=== PATIENT | male | born 1950 | race Caucasian/White ===

== ENCOUNTER 2023-01-16 16:27 | Inpatient (IN) ==
[2023-01-16] MEDS ORDERED: ONDANSETRON INJ 2 MG/ML 2 ML VIAL IV STA (17:04)
[2023-01-16] MEDS ORDERED: SODIUM CHLORIDE 0.9% 1,000 ML IV STA (17:04)
--- NOTE | 2023-01-16 17:12 | Emergency Department Note ---
Impression & Plan Abdominal pain, acute, left lower quadrant ED Provider Note NAME: ESTEBAN QUIROGA AGE: 72 SEX: M : 1950 ARRIVES VIA: Ambulance INFORMANT: Patient, the patient's significant other ED PROVIDER(S): Toni Alvarado DO CHIEF COMPLAINT: Flank pain HPI: The patient is a 72-year-old male who presented to the emergency department for an evaluation of flank pain. The patient describes acute sharp stabbing left-sided flank pain which began approximately 10 days ago. He has been seen in our facility twice for similar complaints. He states that when he comes to the emergency department he has had a work-up including CAT scans and laboratory studies. No formal answer for his pain has been found but the patient states when he does go home he is feeling better but the pain always comes back. He states today the pain became acute and sharp. He was in severe pain and had to call 911. He presented to the emergency department by ambulance. The patient denies having any rectal bleeding. He had episodes of emesis. He denies having any chest pain or difficulty breathing at this time. The patient has not been seen by his family doctor during this time but he is presented to the emergency department 2 previous times. He states he has been compliant with his outpatient medications. ROS: See above HPI for pertinent positives & negatives. A total of 10 systems reviewed and were otherwise negative. PAST MEDICAL HISTORY: See Below PAST SURGICAL HISTORY: See Below FAMILY HISTORY: See Below SOCIAL HISTORY: See Below HOME MEDICATIONS: See Below ALLERGIES: See Below VITALS: See Below PHYSICAL EXAMINATION: GENERAL: The patient is awake and alert. The patient is very anxious and appears to be uncomfortable. EYES: The conjunctivae are clear. The pupils are round and reactive. EARS, NOSE, MOUTH AND THROAT: The nose is without any evidence of any deformity. NECK: The neck is nontender and supple. RESPIRATORY: Normal respiratory effort is noted there is no evidence of wheezing rhonchi or rales CARDIOVASCULAR: Regular rate and rhythm noted there no murmurs rubs or gallops normal S1 normal S2. GASTROINTESTINAL: The abdomen is soft. There is significant left-sided tenderness to palpation but there is no guarding or rigidity noted. BACK: No midline tenderness or or step-off noted range of motion in flexion extension as well as rotation no signs of muscle spasm noted MUSCULOSKELETAL/EXTREMITIES: There is no evidence of gross deformity full range of motion is noted in the hips and shoulders. SKIN: There is no obvious evidence of any rash. There are no petechiae, pallor or cyanosis noted. NEUROLOGIC: Patient is awake alert and oriented x3 strength is symmetric patellar reflexes are 2+ bilaterally MEDICAL DECISION MAKING: The patient is a 72-year-old male who presented to the emergency department for an evaluation of left lower quadrant abdominal pain. The patient has been having intermittent episodes of left-sided abdominal pain over the course the last 10 days. The patient has multiple significant past medical history including factor V. He does take blood thinners. He has been compliant with his outpatient medications. I did review the patient's previous visits as well as his previous radiographic studies. Given the degree of symptoms as well as his diaphoresis I do feel the patient could benefit from further repeat radiographic studies. For this reason a repeat CAT scan was obtained. I discussed the patient's laboratory and radiographic studies with him. He was treated with pain medication multiple times. On reevaluation he was somewhat improved but still had very severe pain. For this reason [facility] evaluate the patient in the emergency department for further management and disposition. Triage Nursing notes reviewed. Prior medical records reviewed Vital Signs: reviewed and remarkable for elevated blood pressure. Differential diagnosis: Etiologies such as appendicitis, diverticulitis, obstruction, inflammatory bowel disease, renal colic, PUD, biliary pathology, pancreatitis, mesenteric ischemia, aortic pathology, infections, genitourinary, UTI, perforated viscus, as well as others were entertained. ER treatment provided: See below Diagnostics interpreted by me: ECG: EKG was obtained in the emergency department. My interpretation is sinus bradycardia 56 bpm. There is no ectopy. LVH was noted by voltage criteria. There is no acute ST segment elevations. This was compared to a tracing from January 15, 2023. A tracing done previously was very atypical. There may be some baseline artifact but it does have some changes compared to today's tracing. Cardiac Monitoring: An order was placed for continuous cardiac monitoring. The monitor shows a rate of 58 bpm with sinus bradycardia. Laboratory studies: As stated above and show below. Imaging studies: See below. Radiographic imaging was reviewed by myself Consultation(s): I discussed this case with Dr. Flores who was on-call for the [facility] hospitalist group. Past Med/Surg History Medical History History of cough pt stated "i have had this cough for about a month. I notified my dr and he asked me to get a covid test done. tested around 10/2021 at the [facility] in [place]. test came back negative." History of dysphagia "sometimes I feel like I am choking without eating anything, having trouble breathing through my nose as well, has been going on for the last 3 years. it comes and goes." Hx of factor V Leiden mutation Hearing loss hearing aids-bilat. Pulmonary embolism 2009-when they found out he had factor V; currently taking eliquis Hemochromatosis "was taking iron pills and had too much in my blood, quit taking 3-4 months ago" [place]ent [place] [facility] [place] [facility]" Hyperlipidemia Surgical History Hx of colonoscopy History of knee surgery LEFT - 1971 Family History Sister Cancer Hypertension Heart disease Mother Stroke Hypertension Other No family history of allergies No family history of bleeding disorder Denies family history of Asthma Social History Smoking Status: Current every day smoker Second Hand Exposure: No; Do You Dip or Chew Tobacco: No; Hx Alcohol Use: No Hx Substance Use: No Preferred Language: Filipino Communication Ability: Effective City Bailiff Required: No Beliefs That Will Affect Care: None marital status: Current Living Situation: Spouse current occupational status: retired Feels Safe at Home: Yes Assistive Devices: Glasses Allergies Allergies Allergy/AdvReac Type Severity Reaction Status Date / Time No Known Drug Allergies Allergy Unknown . Verified 01/16/23 19:38 Home Meds Home Medications Medication Instructions Recorded Confirmed multivitamin 1 tab PO QAM 11/21/20 01/16/23 pravastatin 40 mg tablet 80 mg PO HS 10/18/21 01/16/23 loratadine 10 mg tablet (Claritin) 10 mg PO HS PRN Allergy Symptoms 11/06/21 01/16/23 cholecalciferol (vitamin D3) 50 50 mcg PO DAILY 01/09/23 01/16/23 mcg (2,000 unit) capsule omega-3 fatty acids-fish oil 684 1 cap PO DAILY 01/09/23 01/16/23 mg-1,200 mg capsule,delayed release acetaminophen 500 mg tablet 1,000 mg PO TID 01/15/23 01/16/23 apixaban 5 mg tablet (Eliquis) 5 mg PO BID 01/15/23 01/16/23 budesonide 0.25 mg/2 mL suspension See Rx Instructions .Route .COMPLEX 01/15/23 01/16/23 for nebulization cyanocobalamin (vitamin B-12) 1,000 mcg PO DAILY 01/15/23 01/16/23 1,000 mcg tablet (Vitamin B-12) sodium bicarbonate-sodium See Rx Instructions .Route .COMPLEX 01/15/23 01/16/23 chloride-neti pot nasal rinse with packet (Sinus Wash rinse device w/ packet) Previous Rx's Medication Instructions Recorded prednisone 20 mg tablet 20 mg PO BID 5 days #10 tabs 01/15/23 Results & Data (ED) Vital Signs Vital Signs - 24 hr 01/16/23 16:34 01/16/23 16:34 01/16/23 16:34 Temperature 36.6 C Temperature Source Oral Pulse Rate 59 L 56 L Pulse Rhythm Respiratory Rate 16 16 Blood Pressure 229/108 H Blood Pressure Mean 148 Pulse Oximetry 94 Oxygen Delivery Method Room Air Sepsis Recent Fever Within 48 Hours No Sepsis New/Unexplained Change in Mental Status N/A Sepsis Action Taken by Nursing No Action Required 01/16/23 17:25 Temperature Temperature Source Pulse Rate 58 L Pulse Rhythm Regular Respiratory Rate 19 Blood Pressure Blood Pressure Mean Pulse Oximetry 95 Oxygen Delivery Method Room Air Sepsis Recent Fever Within 48 Hours Sepsis New/Unexplained Change in Mental Status Sepsis Action Taken by Skilled Nursing Medications Current Medication List: was personally reviewed by me Laboratory Data Attestation: I reviewed the patient's lab results. 01/16/23 17:24 01/16/23 17:24 Lab Results 01/16/23 01/16/23 Range/Units 17:24 17:34 WBC 5.86 (4.8-10.8) K/ul RBC 4.13 L (4.70-6.10) M/uL Hgb 13.7 L (14.0-18.0) g/dl Hct 40.8 L (42.0-52.0) % MCV 98.8 (80.0-100.0) fL MCH 33.2 (25.0-34.0) pg MCHC 33.6 (32.0-36.0) g/dL RDW Std Deviation 46.5 H (36.4-46.3) fL RDW Coeff of Prasanth 12.7 (11.5-14.5) % Plt Count 160 (130-400) K/uL MPV 10.0 (9.4-12.4) fL Immature Gran % (Auto) 0.3 % Neut % (Auto) 89.6 % Lymph % (Auto) 6.5 % [place] % (Auto) 3.4 % Eos % (Auto) 0.0 % Baso % (Auto) 0.2 % Neut # (Auto) 5.25 (1.40-6.50) K/uL Lymph # (Auto) 0.38 L (1.20-3.40) K/uL [place] # (Auto) 0.20 (0.11-0.59) K/uL Eos # (Auto) 0.00 (0.00-0.50) K/uL Baso # (Auto) 0.01 (0.00-0.20) K/uL Immature Gran # (Auto) 0.02 (0.01-0.20) K/uL PT 11.3 (9.0-12.0) Seconds INR 1.0 (0.9-1.1) APTT 25.2 (21.0-31.0) Seconds PTT Ratio 0.9 Sodium 136 (136-145) mmol/L Potassium 3.9 (3.5-5.1) mmol/L Chloride 102 (98-107) mmol/L Carbon Dioxide 27 (21-32) mmol/L Anion Gap 7 (3-11) BUN 17 (6-23) mg/dl Creatinine 1.01 (0.6-1.4) mg/dl Est Cr Clr Drug Dosing 62.1 ml/min Est GFR ( Amer) 84.5 ml/min Est GFR (Non-Af Amer) 72.9 ml/min BUN/Creatinine Ratio 16.8 (10-20) Glucose 160 H (70-99(Fasting)) mg/dl Lactate 1.4 (0.4-2.0) mmol/L Calcium 8.9 (8.6-10.3) mg/dl Total Bilirubin 0.9 (0.2-1.0) mg/dl AST 19 (13-39) U/L ALT 16 (7-52) U/L Alkaline Phosphatase 63 (34-104) U/L Troponin I High Sens 8.8 (0-20) pg/ml Total Protein 7.9 (6.0-8.3) gm/dl Albumin 4.4 (3.4-5.0) gm/dl Globulin 3.5 (2.5-4.0) gm/dl Albumin/Globulin Ratio 1.3 (0.9-2) Lipase 15 (11-82) U/L Urine Color Yellow Urine Appearance Clear (Clear) Urine pH 7.5 (4.5-7.5) Ur Specific Sulphur 1.017 (1.000-1.030) Urine Protein 2+ H (Negative) Urine Glucose (UA) Trace H (Negative) Urine Ketones 1+ H (Negative) Urine Blood Negative (Negative) Urine Nitrite Negative (Negative) Urine Bilirubin Negative (Negative) Urine Urobilinogen Negative (Negative) Ur Leukocyte Esterase Negative (Negative) Urine WBC (Auto) 1-5 (0-5) /hpf Urine RBC (Auto) 0-4 (0-4) /hpf U Hyaline Cast (Auto) 0 (0-5) /lpf U Epithel Cells (Auto) 5-10 H (0-5) /lpf Urine Bacteria (Auto) Negative (Negative) Administered Medications Hydromorphone HCl (Hydromorphone Inj 1 Mg/Ml Syringe) 1 mg IV Q15M PRN PRN Reason: Pain Stop: 01/30/23 19:30 Last Admin: 01/16/23 19:35 Dose: 1 mg Documented By: TELEPHONE SWITCHBOARD OPERATOR Morphine Sulfate (Morphine Sulfate 4 Mg/Ml 1 Ml Carp\\Vial) 4 mg IV Q15M PRN PRN Reason: Pain Stop: 01/30/23 17:03 Last Admin: 01/16/23 19:00 Dose: 4 mg Documented By: TELEPHONE SWITCHBOARD OPERATOR Admin: 01/16/23 18:34 Dose: 4 mg Documented By: TELEPHONE SWITCHBOARD OPERATOR Discontinued Medications Sodium Chloride (Nss) 1,000 mls @ 999 mls/hr IV .Q1H1M STA Stop: 01/16/23 18:04 Last Infusion: 01/16/23 19:29 Dose: Infused Documented By: TELEPHONE SWITCHBOARD OPERATOR Admin: 01/16/23 17:37 Dose: 999 mls/hr Documented By: TELEPHONE SWITCHBOARD OPERATOR Ioversol (Optiray 320 125ml) 118 ml IV ONCE ONE Stop: 01/16/23 18:27 Last Admin: 01/16/23 18:27 Dose: 118 ml Documented By: PLW Ondansetron HCl (Ondansetron Inj 2 Mg/Ml 2 Ml Vial) 4 mg IV NOW STA Stop: 01/16/23 17:05 Last Admin: 01/16/23 18:34 Dose: 4 mg Documented By: TELEPHONE SWITCHBOARD OPERATOR Imaging Data Attestation: I personally reviewed and interpreted this imaging study as follows: My Impression: CT angiography of the abdomen and pelvis was obtained. My interpretation is no free air or signs of bowel obstruction, final report below. Radiologist's Impression: Abdomen/Pelvis CTA 01/16/23 17:07 CT ANGIOGRAPHY OF THE ABDOMEN AND PELVIS CLINICAL HISTORY: Left-sided abdominal pain. COMPARISON STUDY: CT of the abdomen and pelvis January 15, 2023. TECHNIQUE: Helical axial images of the abdomen and pelvis were obtained during arterial phase following intravenous injection of 118 cc of Optiray 320 IV. Sagittal and coronal reconstructions were viewed as well as maximal intensity projections on an independent 3-D workstation. Automated exposure control was utilized for the study. A dose lowering technique was utilized adhering to the principles of ALARA. FINDINGS: No pneumatosis, free air or portal venous gas is present. The caliber of the abdominal aorta is normal. There is mild plaque within the abdominal aorta. The branch vessels are patent. There is no stenosis or dissection or aneurysm within the abdomen or pelvis. Arterial phase images of liver, spleen, adrenal glands and pancreas are unremarkable. There is no biliary or pancreatic ductal dilatation. There is no peripancreatic or pericholecystic infiltration. There is no hydronephrosis. There are no urinary calculi. A few left renal cysts are present. There is no evidence for a bowel obstruction. No bowel wall thickening is identified. No acute fractures are within the visualized skeletal structures are present. IMPRESSION: 1. Normal caliber abdominal aorta. Mild atherosclerotic plaque. Patent vessels. No dissection or aneurysm within the abdomen or pelvis. 2. No acute process within the abdomen or pelvis on arterial phase exam. ACT 112: Negative or not required by law. Electronically signed by: Robert Mendez M.D. 01/16/2023 6:55 PM Discharge Plan Visit Data Chief Complaint: Abdominal Pain Stated Complaint: L ABD/FLANK PAIN, SEEN HERE YESTERDAY ED Provider: Toni Alvarado Discharge Problem: Abdominal pain, acute, left lower quadrant Patient Disposition: Being Evaluated by Hospitalist Forms Stand Alone Forms: My [facility] Prescriptions Prescriptions: No Action loratadine [Claritin] 10 mg tablet 10 mg PO HS PRN (Reason: Allergy Symptoms) pravastatin 40 mg tablet 80 mg PO HS multivitamin Tablet 1 tab PO QAM cholecalciferol (vitamin D3) 50 mcg (2,000 unit) Capsule 50 mcg PO DAILY [place] 3 Fish Oil 684-1,200 mg Capsule,Delayed Release(Dr/Ec) 1 cap PO DAILY cyanocobalamin (vitamin B-12) [Vitamin B-12] 1,000 mcg Tablet 1,000 mcg PO DAILY acetaminophen [Tylenol Ex Str Rapid Release] 500 mg Tablet 1,000 mg PO TID budesonide 0.25 mg/2 mL Suspension For Nebulization See Rx Instructions .ROUTE .COMPLEX Rx Instructions: Adds to neti pot and uses to rinse nasal cavities twice daily Eliquis 5 mg Tablet 5 mg PO BID Nasal Relief Sinus Wash w/Neti Packet With Rinse Device See Rx Instructions .ROUTE .COMPLEX Rx Instructions: Uses it twice daily w/ budesonide. prednisone 20 mg tablet 20 mg PO BID 5 Days Qty: 10 0RF Referrals Referrals: Reinier Watson [facility] [Primary Care Provider] -
[2023-01-16 17:39] LABS: Basophils # (auto) 0.01 K/uL (0.00-0.20); Basophils % (auto) 0.2 %; Hematocrit (blood only) 40.8 % (42.0-52.0); Hemoglobin 13.7 g/dl (14.0-18.0); Immature Granulocytes # (auto) 0.02 K/uL (0.01-0.20); Immature Granulocytes % (auto) 0.3 %; Lymphocytes # (auto) 0.38 K/uL (1.20-3.40); Lymphocytes % (auto) 6.5 %; Mean Corpuscular Hemoglobin 33.2 pg (25.0-34.0); Mean Corpuscular Hgb Conc 33.6 g/dL (32.0-36.0); Mean Corpuscular Volume 98.8 fL (80.0-100.0); Monocytes % (auto) 3.4 %; Neutrophils # (auto) 5.25 K/uL (1.40-6.50); Neutrophils % (auto) 89.6 %; Platelet Count 160 K/uL (130-400); RDW Coefficient of Variation 12.7 % (11.5-14.5); RDW Standard Deviation 46.5 fL (36.4-46.3); Red Blood Count 4.13 M/uL (4.70-6.10); White Blood Count 5.86 K/ul (4.8-10.8)
[2023-01-16 17:56] LABS: Appearance Urine Clear (Clear); Bacteria Urine Automated Negative (Negative); Bilirubin Urine Negative (Negative); Blood Urine Negative (Negative); Cast Urine Automated 0 /lpf (0-5); Color Urine Yellow; Glucose Urine UA Trace (Negative); Ketones Urine 1+ (Negative); Leukocyte Esterase Urine Negative (Negative); Nitrite Urine Negative (Negative); RBC Urine Automated 0-4 /hpf (0-4); Specific Gravity Urine 1.017 (1.000-1.030); Urobilinogen Urine Negative (Negative); pH Urine 7.5 (4.5-7.5)
[2023-01-16 18:00] LABS: Protein Urine 2+ (Negative)
[2023-01-16 18:01] LABS: Albumin Level 4.4 gm/dl (3.4-5.0); Bilirubin,Total 0.9 mg/dl (0.2-1.0); Calcium 8.9 mg/dl (8.6-10.3); Potassium 3.9 mmol/L (3.5-5.1)
[2023-01-16 18:07] LABS: Albumin Globulin Ratio 1.3 (0.9-2); BUN Creatinine Ratio 16.8 (10-20); Creatinine Clr Calc Pharmacy 62.1 ml/min; Est GFR (African American) 84.5 ml/min; Est GFR (Non-African American) 72.9 ml/min; Globulin 3.5 gm/dl (2.5-4.0); Partial Thromboplastin Ratio 0.9; Partial Thromboplastin Time 25.2 Seconds (21.0-31.0); Prothrombin Time 11.3 Seconds (9.0-12.0); Total Protein 7.9 gm/dl (6.0-8.3)
[2023-01-16 18:09] LABS: Troponin I High Sensitivity 8.8 pg/ml (0-20)
[2023-01-16] MEDS ORDERED: OPTIRAY 320 125ml IV ONE (18:26)
[2023-01-16] MEDS: MoRPHine SULFATE 4 MG/ML 1 ML CARP\\VIAL IV PRN ×2 (18:34→19:00)
--- NOTE | 2023-01-16 18:57 | CT Scan Report ---
CT ANGIOGRAPHY OF THE ABDOMEN AND PELVIS CLINICAL HISTORY: Left-sided abdominal pain. COMPARISON STUDY: CT of the abdomen and pelvis January 15, 2023. TECHNIQUE: Helical axial images of the abdomen and pelvis were obtained during arterial phase followi ng intravenous injection of 118 cc of Optiray 320 IV. Sagittal and coronal reconstructions were viewe d as well as maximal intensity projections on an independent 3-D workstation. Automated exposure cont rol was utilized for the study. A dose lowering technique was utilized adhering to the principles of ALARA. FINDINGS: No pneumatosis, free air or portal venous gas is present. The caliber of the abdominal aort a is normal. There is mild plaque within the abdominal aorta. The branch vessels are patent. There is no stenosis or dissection or aneurysm within the abdomen or pelvis. Arterial phase images of liver, spleen, adrenal glands and pancreas are unremarkable. There is no biliary or pancreatic ductal dilata tion. There is no peripancreatic or pericholecystic infiltration. There is no hydronephrosis. There a re no urinary calculi. A few left renal cysts are present. There is no evidence for a bowel obstructi on. No bowel wall thickening is identified. No acute fractures are within the visualized skeletal str uctures are present. IMPRESSION: 1. Normal caliber abdominal aorta. Mild atherosclerotic plaque. Patent vessels. No dissection or aneu rysm within the abdomen or pelvis. 2. No acute process within the abdomen or pelvis on arterial phase exam. ACT 112: Negative or not required by law. Electronically signed by: Robert Mendez M.D. 01/16/2023 6:55 PM
[2023-01-16] MEDS ORDERED: HYDROmorphone INJ 1 MG/ML SYRINGE IV PRN (19:31)
[2023-01-16] MEDS ORDERED: lisinopril 5 MG TAB PO ONE (19:54)
[2023-01-16] MEDS ORDERED: oxyCODONE HCL IR 5 MG TAB (IMMEDIATE RELEASE) PO PRN (20:04)
[2023-01-16] MEDS ORDERED: ACETAMINOPHEN 325 MG TAB PO PRN (20:04)
[2023-01-16] MEDS ORDERED: LORazepam 0.5 MG TAB PO PRN (20:05)
[2023-01-16] MEDS ORDERED: PROMETHAZINE HCL 6.25 MG in SODIUM CHLORIDE 0.9% 50 ML IV PRN (20:05)
[2023-01-16] MEDS ORDERED: MoRPHine SULFATE 2 MG/ML CARP IV PRN (20:05)
[2023-01-16 20:53] LABS: Thyroid Stimulating Hormone 1.982 uIu/ml (0.300-4.500)
[2023-01-16 20:58] LABS: Estimated Average Glucose 114 mg/dl; Hemoglobin A1C 5.6 % (4.5-5.6)
[2023-01-16] MEDS ORDERED: LIDOCAINE 5% 1 PATCH TD ONE (21:00)
--- NOTE | 2023-01-16 21:12 | History & Physical Report ---
Date of Service January 16, 2023 Assessment & Plan (1) Asymptomatic hypertensive urgency: Plan: Secondary to intractable left flank/left abdominal pain rule out radiculopathy (lumbar CT from yesterday showed disc space narrowing) and recent steroid Rx Probable muscular etiology on exam Possible chronic BP elevation given LVH on EKG hypercoagulable state (hx PE and factor V Leiden mutation) on Eliquis hyperlipidemia on statin Rx Steroid-induced hyperglycemia rule out DM OBS Medical telemetry given hypertensive urgency Initiate lisinopril Analgesia Lumbar spine MRI Re: Left flank pain going to the abdomen rule out radiculopathy May need Orthopedic spine consultation pending results Hold Eliquis for now until lumbar spine resulted in anticipation of any procedure IV heparin while Eliquis on hold. Hold prednisone Check hemoglobin A1c DVT prophylaxis with IV heparin Full code Patient requesting updates providers. Amanda Segura, contact #[phone]. Text document was generated using [employer] voice recognition software. It may contain grammatical or spelling errors. Kindly contact undersigned for clarification of any documentation item in question. History of Present Illness Chief Complaint: Worsening left flank/abdominal pain Primary Care Provider: ARIES Britt History obtained from patient, family, and records. Medical history significant for hypercoagulable state (hx PE and factor V Leiden mutation) on Eliquis, hyperlipidemia, hemochromatosis. 10 days history of intermittent achy left flank pain symptoms going to the abdomen followed by occasional nausea, emesis. No headache, no chest pain, no SOB. No rash. No hematuria. No recollection of recent trauma or exertion. Symptoms somewhat worsened by motion and ambulation. No leg radiation. Patient sent home after unremarkable work-up at the [facility] ER last January 08. Patient consulted sports therapist acquaintance last week. He was told that his pelvis was misaligned. Some improvement after manipulation done by sports therapist as per patient. A few days later, patient had worsening recurrence of left-sided flank pain going to the belly. Bowels somewhat hard to move. Patient seen at the ER yesterday. No acute pathology on CT abdomen and pelvis and lumbar imaging. Patient discharged on prednisone course. No improvement despite 1 dose of prednisone. Patient returned to ER for evaluation. SBP 220s upon arrival at the ER. Patient denies headache, chest pain, SOB symptoms. 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 Verified 01/16/23 19:38 Home Medications Medication Instructions Recorded Confirmed Type multivitamin 1 tab PO QAM 11/21/20 01/16/23 History pravastatin 40 mg tablet 80 mg PO HS 10/18/21 01/16/23 History loratadine 10 mg tablet (Claritin) 10 mg PO HS PRN Allergy Symptoms 11/06/21 01/16/23 History cholecalciferol (vitamin D3) 50 50 mcg PO DAILY 01/09/23 01/16/23 History mcg (2,000 unit) capsule omega-3 fatty acids-fish oil 684 1 cap PO DAILY 01/09/23 01/16/23 History mg-1,200 mg capsule,delayed release acetaminophen 500 mg tablet 1,000 mg PO TID 01/15/23 01/16/23 History apixaban 5 mg tablet (Eliquis) 5 mg PO BID 01/15/23 01/16/23 History budesonide 0.25 mg/2 mL suspension See Rx Instructions .Route .COMPLEX 01/15/23 01/16/23 History for nebulization cyanocobalamin (vitamin B-12) 1,000 mcg PO DAILY 01/15/23 01/16/23 History 1,000 mcg tablet (Vitamin B-12) prednisone 20 mg tablet 20 mg PO BID 5 days #10 tabs 01/15/23 01/16/23 Rx sodium bicarbonate-sodium See Rx Instructions .Route .COMPLEX 01/15/23 01/16/23 History chloride-neti pot nasal rinse with packet (Sinus Wash rinse device w/ packet) Past Med/Surg History Medical History History of cough pt stated "i have had this cough for about a month. I notified my dr and he asked me to get a covid test done. tested around 10/2021 at the [place] urgent [facility] in [place]. test came back negative." History of dysphagia "sometimes I feel like I am choking without eating anything, having trouble breathing through my nose as well, has been going on for the last 3 years. it comes and goes." Hx of factor V Leiden mutation Hearing loss hearing aids-bilat. Pulmonary embolism 2009-when they found out he had factor V; currently taking eliquis Hemochromatosis "was taking iron pills and had too much in my blood, quit taking 3-4 months ago" [place]ent [place], [place] the [place] department of the health" Hyperlipidemia Surgical History Hx of colonoscopy History of knee surgery LEFT - 1971 Family History Sister Cancer Hypertension Heart disease Mother Stroke Hypertension Other No family history of allergies No family history of bleeding disorder Denies family history of Asthma Social History Smoking Status: Never smoker Second Hand Exposure: No; Do You Dip or Chew Tobacco: No; Hx Alcohol Use: No Hx Substance Use: No Preferred Language: Lithuanian Communication Ability: Effective Sausage Cooker Required: No Beliefs That Will Affect Care: None marital status: Current Living Situation: Spouse current occupational status: retired Feels Safe at Home: Yes Safety Concerns: Feels Safe At This Time Assistive Devices: Glasses Review of Systems Review of Systems: As per HPI, all other systems reviewed and negative Physical Exam Physical Exam: GENERAL: Slightly uncomfortable, no respiratory distress SKIN: Normal color, warm HEENT: [place] palpebral conjunctivae, no ptosis, dry buccal mucosa NECK : Supple, no tenderness CHEST : CTA, no tenderness HEART : Bradycardic, no obvious murmurs ABDOMEN: Some distention, left-sided abdominal tenderness BACK : Low back tenderness, negative straight leg raise test EXTREMITIES : No LE swelling/tenderness, no other conspicuous deformities noted NEUROLOGIC : Coherent, no facial asymmetry, no other gross focality Results & Data Results & Data Vital Signs (Past 12 Hours) Vital Signs Temp Pulse Resp BP Pulse Ox O2 Del Method 01/16/23 20:12 59 L 01/16/23 17:25 58 L 19 95 Room Air 01/16/23 16:34 56 L 01/16/23 16:34 16 01/16/23 16:34 36.6 C 59 L 16 229/108 H 94 Room Air Laboratory Results Laboratory Results WBC 5.86 K/ul (4.8-10.8) 01/16/23: RBC 4.13 M/uL (4.70-6.10) L 01/16/23: Hgb 13.7 g/dl (14.0-18.0) L 01/16/23: Hct 40.8 % (42.0-52.0) L 01/16/23: MCV 98.8 fL (80.0-100.0) 01/16/23: MCH 33.2 pg (25.0-34.0) 01/16/23: MCHC 33.6 g/dL (32.0-36.0) 01/16/23 RDW Std Deviation 46.5 fL (36.4-46.3) H 01/16/23 RDW Coeff of Prasanth 12.7 % (11.5-14.5) 01/16/23 Plt Count 160 K/uL (130-400) 01/16/23: MPV 10.0 fL (9.4-12.4) 01/16/23: Immature Gran % (Auto) 0.3 % 01/16/23: Neut % (Auto) 89.6 % 01/16/23: Lymph % (Auto) 6.5 % 01/16/23: Gregory % (Auto) 3.4 % 01/16/23: Eos % (Auto) 0.0 % 01/16/23: Baso % (Auto) 0.2 % 01/16/23: Neut # (Auto) 5.25 K/uL (1.40-6.50) 01/16/23: Lymph # (Auto) 0.38 K/uL (1.20-3.40) L 01/16/23: Gregory # (Auto) 0.20 K/uL (0.11-0.59) 01/16/23: Eos # (Auto) 0.00 K/uL (0.00-0.50) 01/16/23: Baso # (Auto) 0.01 K/uL (0.00-0.20) 01/16/23 17:24 Immature Gran # (Auto) 0.02 K/uL (0.01-0.20) 01/16/23 17:24 PT 11.3 Seconds (9.0-12.0) 01/16/23 17:24 INR 1.0 (0.9-1.1) 01/16/23 17: APTT 25.2 Seconds (21.0-31.0) 01/16/23: PTT Ratio 0.9 01/16/23 17:24 Sodium 136 mmol/L (136-145) 01/16/23 17:24 Potassium 3.9 mmol/L (3.5-5.1) 01/16/23: Chloride 102 mmol/L (98-107) 01/16/23: Carbon Dioxide 27 mmol/L (21-32) 01/16/23 17: Anion Gap 7 (3-11) 01/16/23: BUN 17 mg/dl (6-23) 01/16/23: Creatinine 1.01 mg/dl (0.6-1.4) 01/16/23 17: Est Cr Clr Drug Dosing 62.1 ml/min 01/16/23 17:24 Est GFR ( Amer) 84.5 ml/min 01/16/23: Est GFR (Non-Af Amer) 72.9 ml/min 01/16/23 17: BUN/Creatinine Ratio 16.8 (10-20) 01/16/23 17: Glucose 160 mg/dl (70-99(Fasting)) H 01/16/23 17: Estimat Average Glucose 114 mg/dl 01/16/23 17:24 Hemoglobin A1c 5.6 % (4.5-5.6) 01/16/23 17: Lactate 1.4 mmol/L (0.4-2.0) 01/16/23: Calcium 8.9 mg/dl (8.6-10.3) 01/16/23 17:24 Total Bilirubin 0.9 mg/dl (0.2-1.0) 01/16/23 17: AST 19 U/L (13-39) 01/16/23 17: ALT 16 U/L (7-52) 01/16/23 17:24 Alkaline Phosphatase 63 U/L (34-104) 01/16/23 17:24 Troponin I High Sens 8.8 pg/ml (0-20) 01/16/23 17:24 Total Protein 7.9 gm/dl (6.0-8.3) 01/16/23 17:24 Albumin 4.4 gm/dl (3.4-5.0) 01/16/23 17: Globulin 3.5 gm/dl (2.5-4.0) 01/16/23 17: Albumin/Globulin Ratio 1.3 (0.9-2) 01/16/23 17: Lipase 15 U/L (11-82) 01/16/23 17: TSH 1.982 uIu/ml (0.300-4.500) 01/16/23 17:24 Urine Color Yellow 01/16/23 17:34 Urine Appearance Clear (Clear) 01/16/23 17:34 Urine pH 7.5 (4.5-7.5) 01/16/23 17:34 Ur Specific Cody 1.017 (1.000-1.030) 01/16/23 17:34 Urine Protein 2+ (Negative) H 01/16/23 17:34 Urine Glucose (UA) Trace (Negative) H 01/16/23 17:34 Urine Ketones 1+ (Negative) H 01/16/23 17:34 Urine Blood Negative (Negative) 01/16/23 17:34 Urine Nitrite Negative (Negative) 01/16/23 17:34 Urine Bilirubin Negative (Negative) 01/16/23 17:34 Urine Urobilinogen Negative (Negative) 01/16/23 17:34 Ur Leukocyte Esterase Negative (Negative) 01/16/23 17:34 Urine WBC (Auto) 1-5 /hpf (0-5) 01/16/23 17:34 Urine RBC (Auto) 0-4 /hpf (0-4) 01/16/23 17:34 U Hyaline Cast (Auto) 0 /lpf (0-5) 01/16/23 17:34 U Epithel Cells (Auto) 5-10 /lpf (0-5) H 01/16/23 17:34 Urine Bacteria (Auto) Negative (Negative) 01/16/23 17:34 Impressions Abdomen/Pelvis CTA 01/16/23 17:07 CT ANGIOGRAPHY OF THE ABDOMEN AND PELVIS CLINICAL HISTORY: Left-sided abdominal pain. COMPARISON STUDY: CT of the abdomen and pelvis January 15, 2023. TECHNIQUE: Helical axial images of the abdomen and pelvis were obtained during arterial phase following intravenous injection of 118 cc of Optiray 320 IV. Sagittal and coronal reconstructions were viewed as well as maximal intensity projections on an independent 3-D workstation. Automated exposure control was utilized for the study. A dose lowering technique was utilized adhering to the principles of ALARA. FINDINGS: No pneumatosis, free air or portal venous gas is present. The caliber of the abdominal aorta is normal. There is mild plaque within the abdominal aorta. The branch vessels are patent. There is no stenosis or dissection or aneurysm within the abdomen or pelvis. Arterial phase images of liver, spleen, adrenal glands and pancreas are unremarkable. There is no biliary or pancreatic ductal dilatation. There is no peripancreatic or pericholecystic infiltration. There is no hydronephrosis. There are no urinary calculi. A few left renal cysts are present. There is no evidence for a bowel obstruction. No bowel wall thickening is identified. No acute fractures are within the visualized skeletal structures are present. IMPRESSION: 1. Normal caliber abdominal aorta. Mild atherosclerotic plaque. Patent vessels. No dissection or aneurysm within the abdomen or pelvis. 2. No acute process within the abdomen or pelvis on arterial phase exam. ACT 112: Negative or not required by law. Electronically signed by: Robert Mendez M.D. 01/16/2023 6:55 PM Diagnostic Findings EKG as per my interpretation : Rate 55, sinus bradycardia, LAD, LAFB, LVH, no ischemia
[2023-01-16] MEDS ORDERED: tiZANidine HCL 4 MG TABLET PO PRN (21:15)
[2023-01-16] MEDS ORDERED: Heparin IV Adult Wt-Based Low-Dose *NO* Bolus Protocol IV STA (21:24)
[2023-01-16] MEDS ORDERED: Heparin IV Adult Wt-Based Low-Dose *NO* Bolus Protocol IV SCH (21:30)
[2023-01-16 22:46] LABS: Lyme Ab IgG w/WB Rflx Negative (Negative); Lyme Ab IgM w/WB Rflx Negative (Negative)
[2023-01-16] MEDS: HEPARIN SODIUM/DEXTROSE 25,000 UNITS/500 ML BAG IV SCH (22:56)
[2023-01-17] MEDS ORDERED: [UNRECOGNIZED DRUG - MIXTURE] SCH (00:09)
[2023-01-17] MEDS ORDERED: POLYETHYLENE (MIRALAX) 17 GM PACK PO PRN (00:09)
[2023-01-17] MEDS ORDERED: LORATADINE 10 MG TAB PO PRN (00:09)
[2023-01-17] MEDS: DOCUSATE SODIUM/SENNA 50/8.6MG TAB PO SCH ×2 (00:34→09:36)
--- NOTE | 2023-01-17 02:43 | Magnetic Resonance Report ---
Exam(s): MRI L SPINE Without Contrast EXAM: MR Lumbar Spine Without Intravenous Contrast CLINICAL HISTORY: Reason for exam: back pain. TECHNIQUE: Magnetic resonance images of the lumbar spine without intravenous contrast in multiple planes. COMPARISON: Comparison made to prior CT scan of the lumbar spine from January 15, 2023. FINDINGS: Vertebrae: There are 5 lumbar type vertebral bodies with a mild generalized curve to the left and normal lumbar lordosis. The S1 vertebral body is transitional. There is mild grade 1 retrolisthesis of L3 on L4 measuring 2 mm. Otherwise, there is normal vertebral body height and alignment. The bone was signal is heterogeneous with reactive endplate changes with extensive edema in the left L4-5 endplates and areas of focal fat or venous malformations. No acute fracture. Mild to moderate sacroiliac joint arthropathy. Spinal cord: The conus is normal size, shape and signal. Piercings, terminating at T12. Soft tissues: Moderate atrophy of the paraspinous and intraspinous musculature. The iliopsoas muscles are unremarkable. The aorta and IVC flow voids are intact. The visualized kidneys are unremarkable. DISCS/SPINAL CANAL/NEURAL FORAMINA: L1-L2: Moderate disc degeneration with annular disc bulge flattening the ventral thecal sac, with disc extending to the neural foramina without evidence of impingement or significant stenosis. There is mild facet arthropathy with mild synovitis. L2-L3: Moderate disc degeneration with annular disc bulge asymmetric to the left causing mild subarticular recess stenosis, with disc extending into the neural foramina without evidence of impingement or significant stenosis. There is mild facet arthropathy with mild synovitis. L3-L4: Moderate disc degeneration with annular disc bulge just medial to the left causing a mild subarticular recess stenosis, with disc and osteophyte extend to the neural foramina without evidence of impingement or significant stenosis. There is mild facet arthropathy with mild synovitis. L4-L5: Moderate disc degeneration with annular disc bulge and superimposed 2 mm right paracentral disc protrusion causing a mild subarticular recess stenosis with a disc and osteophyte extend into the neural foramina causing a mild right stenosis without evidence of neural impingement. There is mild facet arthropathy with mild synovitis. L5-S1: Advanced disc degeneration with annular disc bulge asymmetric to the left causing a mild subarticular recess stenosis with disc extending to the neural foramina causing a moderate right and severe left stenosis with impingement of the L5 nerve root ganglia. There is mild facet arthropathy with mild synovitis. IMPRESSION: 1. Advanced disc degeneration at L5-S1 with moderate disc degeneration at L1-2, L2-3, L3-4 and L4-5 with annular disc bulging flattening the ventral thecal sac and causing a mild subarticular recess stenosis at L2- 3 through L5-S1 without evidence of neural impingement. There is extensive bone marrow edema at L5-S1, which may be causing a central discogenic type lower back pain. 2. There is no spinal canal stenosis. 3. There is a mild right L4-5 and moderate right and severe left L5-S1 neuroforaminal stenosis with impingement of the bilateral L5 nerve ganglia. 4. There is mild facet joint arthropathy with mild synovitis. 5. Mild to moderate bilateral sacroiliac joint arthropathy. 6. No evidence of fracture, infection, tumor or arachnoiditis. Electronically signed by: Ivonne Dunlap MD 01/17/23 02:42 AM
[2023-01-17] MEDS ORDERED: lisinopril 5 MG TAB PO SCH (03:35)
[2023-01-17 05:50] LABS: Basophils # (auto) 0.04 K/uL (0.00-0.20); Basophils % (auto) 0.6 %; Hematocrit (blood only) 40.2 % (42.0-52.0); Hemoglobin 13.7 g/dl (14.0-18.0); Immature Granulocytes # (auto) 0.01 K/uL (0.01-0.20); Immature Granulocytes % (auto) 0.2 %; Lymphocytes # (auto) 1.69 K/uL (1.20-3.40); Lymphocytes % (auto) 26.8 %; Mean Corpuscular Hemoglobin 33.7 pg (25.0-34.0); Mean Corpuscular Hgb Conc 34.1 g/dL (32.0-36.0); Monocytes # (auto) 0.51 K/uL (0.11-0.59); Monocytes % (auto) 8.1 %; Neutrophils # (auto) 4.05 K/uL (1.40-6.50); Neutrophils % (auto) 64.3 %; Platelet Count 172 K/uL (130-400); RDW Coefficient of Variation 13.1 % (11.5-14.5); RDW Standard Deviation 47.8 fL (36.4-46.3); Red Blood Count 4.06 M/uL (4.70-6.10)
[2023-01-17 06:00] LABS: Partial Thromboplastin Ratio 1.3; Partial Thromboplastin Time 37.2 Seconds (21.0-31.0)
[2023-01-17] MEDS: HEPARIN SODIUM/DEXTROSE 25,000 UNITS/500 ML BAG IV SCH (07:06)
--- NOTE | 2023-01-17 08:26 | Orthopedic Consultation ---
Date of Consultation January 17, 2023 Assessment & Plan (1) Abdominal pain, acute, left lower quadrant: MRI reviewed and I do not appreciate any evidence of thoracolumbar neural compression. There is significant neuroforaminal disease L4-L5 on the left. He has normal age-related bone patterns throughout the spine. I do not believe this is contributing to his symptom complex at this time. History of Present Illness Reason for Consultation: Left lower quadrant pain Attending Physician: Darin Ramos MD History of Present Illness This is a 72-year-old male that had episodes of severe left lower quadrant pain in the abdomen. He denies any specific trauma fall or event. He states the pain was incapacitating. Is often related to prolonged standing and walking. This morning he is relatively comfortable in bed. He denies any significant thoracolumbar discomfort. He denies any leg pain. He is otherwise a very active gentleman works out on regular basis. Allergies Allergy/AdvReac Type Severity Reaction Status Date / Time No Known Drug Allergies Allergy Unknown . Verified 01/16/23 19:38 Home Medications Medication Instructions Recorded Confirmed Type multivitamin 1 tab PO QAM 11/21/20 01/16/23 History pravastatin 40 mg tablet 80 mg PO HS 10/18/21 01/16/23 History loratadine 10 mg tablet (Claritin) 10 mg PO HS PRN Allergy Symptoms 11/06/21 01/16/23 History cholecalciferol (vitamin D3) 50 50 mcg PO DAILY 01/09/23 01/16/23 History mcg (2,000 unit) capsule omega-3 fatty acids-fish oil 684 1 cap PO DAILY 01/09/23 01/16/23 History mg-1,200 mg capsule,delayed release acetaminophen 500 mg tablet 1,000 mg PO TID 01/15/23 01/16/23 History apixaban 5 mg tablet (Eliquis) 5 mg PO BID 01/15/23 01/16/23 History budesonide 0.25 mg/2 mL suspension See Rx Instructions .Route .COMPLEX 01/15/23 01/16/23 History for nebulization cyanocobalamin (vitamin B-12) 1,000 mcg PO DAILY 01/15/23 01/16/23 History 1,000 mcg tablet (Vitamin B-12) prednisone 20 mg tablet 20 mg PO BID 5 days #10 tabs 01/15/23 01/16/23 Rx sodium bicarbonate-sodium See Rx Instructions .Route .COMPLEX 01/15/23 01/16/23 History chloride-neti pot nasal rinse with packet (Sinus Wash rinse device w/ packet) Patient History Medical History History of cough pt stated "i have had this cough for about a month. I notified my dr and he asked me to get a covid test done. tested around 10/2021 at the [place] urgent [facility] in [place]. test came back negative." History of dysphagia "sometimes I feel like I am choking without eating anything, having trouble breathing through my nose as well, has been going on for the last 3 years. it comes and goes." Hx of factor V Leiden mutation Hearing loss hearing aids-bilat. Pulmonary embolism 2009-when they found out he had factor V; currently taking eliquis Hemochromatosis "was taking iron pills and had too much in my blood, quit taking 3-4 months ago" [place]ent [place], [place] department of the health" Hyperlipidemia Surgical History Hx of colonoscopy History of knee surgery LEFT - 1971 Family History Sister Cancer Hypertension Heart disease Mother Stroke Hypertension Other No family history of allergies No family history of bleeding disorder Denies family history of Asthma Social History Smoking Status: Never smoker Second Hand Exposure: No; Do You Dip or Chew Tobacco: No; Hx Alcohol Use: No Hx Substance Use: No Preferred Language: Turkish Communication Ability: Effective Platen Grinder Required: No Beliefs That Will Affect Care: None marital status: Current Living Situation: Spouse current occupational status: retired Feels Safe at Home: Yes Safety Concerns: Feels Safe At This Time Assistive Devices: Glasses Physical Exam Physical Exam: On exam he does have tenderness with direct palpation over the left lower quadrant. He has no abnormal skin markings or rash in the abdomen. He has no back pain. He has excellent +5-5 plantarflexion dorsiflexion quadriceps carlos aterally. Negative logroll. Sensory symmetric and intact. Results & Data Vital Signs (Past 12 Hours) Vital Signs Temp Pulse Pulse Resp BP BP Pulse Ox 01/17/23 07:53 44 L 01/17/23 07:52 36.4 C L 50 L 14 135/68 94 01/17/23 03:29 01/17/23 01:21 36.7 C 56 L 18 184/82 H 98 01/17/23 00:00 52 L 14 131/73 95 01/16/23 23:14 53 L 15 121/74 96 01/16/23 23:00 65 14 143/77 H 97 01/16/23 22:45 126/81 97 01/16/23 22:04 95 01/16/23 22:04 120/79 01/16/23 21:16 198/94 H 01/16/23 21:16 60 22 100 01/16/23 21:10 58 L 18 100 01/16/23 21:04 59 L 25 H 98 01/16/23 21:04 210/105 H 01/16/23 21:00 58 L 18 97 01/16/23 21:00 203/94 H 01/16/23 20:50 62 20 97 01/16/23 20:40 58 L 19 97 01/16/23 20:30 67 22 96 Pulse Ox O2 Del Method O2 Del Method 01/17/23 07:53 01/17/23 07:52 Room Air 01/17/23 03:29 98 Room Air 01/17/23 01:21 Room Air 01/17/23 00:00 Room Air 01/16/23 23:14 01/16/23 23:00 01/16/23 22:45 01/16/23 22:04 01/16/23 22:04 01/16/23 21:16 01/16/23 21:16 01/16/23 21:10 01/16/23 21:04 01/16/23 21:04 01/16/23 21:00 01/16/23 21:00 01/16/23 20:50 01/16/23 20:40 01/16/23 20:30
[2023-01-17] MEDS: CYANOCOBALAMIN (B-12) 500 MCG TABLET PO SCH (09:35)
[2023-01-17] MEDS: MULTIVITAMIN TAB PO SCH (09:36)
[2023-01-17] MEDS: ACETAMINOPHEN 500 MG TAB PO SCH ×3 (09:36→20:03)
[2023-01-17] MEDS: APIXABAN 5 MG TABLET PO SCH ×2 (09:39→20:03)
[2023-01-17] MEDS ORDERED: tiZANidine HCL 4 MG TABLET PO ONE (12:19)
[2023-01-17 14:54] LABS: BUN Creatinine Ratio 14.6 (10-20); Creatinine Clr Calc Pharmacy 48.2 ml/min; Est GFR (African American) 62.3 ml/min; Est GFR (Non-African American) 53.8 ml/min; Potassium 3.3 mmol/L (3.5-5.1)
[2023-01-17 15:06] LABS: Partial Thromboplastin Time 28.2 Seconds (21.0-31.0)
--- NOTE | 2023-01-17 17:55 | Hospitalist Progress Note ---
Date of Service January 17, 2023 Assessment & Plan (1) Asymptomatic hypertensive urgency: Plan: per admitting service notes with addendum: Secondary to intractable left flank/left abdominal pain rule out radiculopathy (lumbar CT from yesterday showed disc space narrowing) and recent steroid Rx Probable muscular etiology on exam Possible chronic BP elevation given LVH on EKG hypercoagulable state (hx PE and factor V Leiden mutation) on Eliquis hyperlipidemia on statin Rx Steroid-induced hyperglycemia rule out DM OBS Medical telemetry given hypertensive urgency Initiate lisinopril Analgesia Lumbar spine MRI Re: Left flank pain going to the abdomen rule out radiculopathy May need Orthopedic spine consultation pending results Hold Eliquis for now until lumbar spine resulted in anticipation of any procedure IV heparin while Eliquis on hold. Hold prednisone Check hemoglobin A1c DVT prophylaxis with IV heparin Full code 01/17 pain improving Ortho consulted: pain not related to lumbar degenerative disease continue Tizanidine PRN, Tylenol PT/OT eval plan of care discussed with patient and in detail and at length all questions answered they are understanding, agreeable, comfortable with the plan of care Admission and Anticipated Discharge Date Admission Date: January 16, 2023 Subjective ff up for abdominal pain, etc seen resting in bed, comfortable states pain is more manageable today no pain at rest, mostly while ambulating starts in the left side of the abdomen, radiates to the side no lower extremity weakness, paresthesias no other symptoms Review of Systems Review of Systems: all noted and negative except for above Physical Exam Physical Exam: General- oriented x 3, not in distress, speaks in sentences with no effort or accessory muscle use Eyes- anicteric Neck- no JVD Lungs- clear breath sounds bilaterally, no rales/wheezes Heart- normal rate, regular rhythm; no murmurs Abdomen- normal bowel sounds, nondistended, soft, nontender Extremities- no pretibial edema, no calf tenderness Neuro- alert, oriented x 3; no gross focal neurologic deficits Skin- warm & dry Results & Data Results & Data Vital Signs (Past 12 Hours) Vital Signs Temp Pulse Pulse Resp BP Pulse Ox O2 Del Method 01/17/23 16:16 52 L 01/17/23 15:31 36.3 C L 53 L 16 95/58 L 93 Room Air 01/17/23 11:46 36.4 C L 50 L 16 118/71 93 Room Air 01/17/23 07:53 44 L 01/17/23 07:52 36.4 C L 50 L 14 135/68 94 Room Air all noted and reviewed including below
[2023-01-17] MEDS ORDERED: MAGNESIUM HYDROXIDE SUSP 30 ML UDC PO ONE (19:52)
[2023-01-17] MEDS ORDERED: NSS + 20MEQ KCL 20 MEQ/1,000 ML BAG IV ONE (20:00)
[2023-01-17] MEDS: LIDOCAINE 5% 1 PATCH TD SCH (20:45)
--- NOTE | 2023-01-18 02:02 | Communication Note ---
Date of Service: January 18, 2023 Patient SBP noted to be 90- 100s. Patient asymptomatic. Today's serum creatinine 1.3 from 1 yesterday Ap Hypotension Increased creatinine IVF Hold lisinopril for now
[2023-01-18] MEDS: CYANOCOBALAMIN (B-12) 500 MCG TABLET PO SCH (08:12)
[2023-01-18] MEDS: ACETAMINOPHEN 500 MG TAB PO SCH ×4 (08:12→20:34)
[2023-01-18] MEDS: APIXABAN 5 MG TABLET PO SCH ×2 (08:12→20:34)
[2023-01-18] MEDS: DOCUSATE SODIUM/SENNA 50/8.6MG TAB PO SCH (08:13)
[2023-01-18] MEDS: MULTIVITAMIN TAB PO SCH (08:13)
[2023-01-18] MEDS ORDERED: lisinopril 2.5 MG TAB PO SCH (09:00)
[2023-01-18] MEDS: tiZANidine HCL 4 MG TABLET PO SCH ×2 (11:09→20:35)
--- NOTE | 2023-01-18 17:21 | Hospitalist Progress Note ---
Date of Service January 18, 2023 Assessment & Plan (1) Asymptomatic hypertensive urgency: Plan: per admitting service notes with addendum: Secondary to intractable left flank/left abdominal pain rule out radiculopathy (lumbar CT from yesterday showed disc space narrowing) and recent steroid Rx Probable muscular etiology on exam Possible chronic BP elevation given LVH on EKG hypercoagulable state (hx PE and factor V Leiden mutation) on Eliquis hyperlipidemia on statin Rx Steroid-induced hyperglycemia rule out DM Medical telemetry given hypertensive urgency Initiate lisinopril Analgesia Lumbar spine MRI Re: Left flank pain going to the abdomen rule out radiculopathy May need Orthopedic spine consultation pending results 01/18 pain continues to improve Ortho consulted: pain not related to lumbar degenerative disease continue Tizanidine PRN, Tylenol PT/OT eval continue Eliquis plan of care discussed with patient and in detail and at length all questions answered they are understanding, agreeable, comfortable with the plan of care Admission and Anticipated Discharge Date Admission Date: January 17, 2023 Subjective ff up for abdominal pain, etc seen resting in bed, comfortable states he feels better today able to walk better in the hallways had L sided abdominal pain, after doing crunches with PT no other symptoms Review of Systems Review of Systems: all noted and negative except for above Physical Exam Physical Exam: General- oriented x 3, not in distress, speaks in sentences with no effort or accessory muscle use Eyes- anicteric Neck- no JVD Lungs- clear breath sounds bilaterally, no rales/wheezes Heart- normal rate, regular rhythm; no murmurs Abdomen- normal bowel sounds, nondistended, soft, nontender Extremities- no pretibial edema, no calf tenderness Neuro- alert, oriented x 3; no gross focal neurologic deficits Skin- warm & dry Results & Data Results & Data Vital Signs (Past 12 Hours) Vital Signs Temp Pulse Pulse Resp BP Pulse Ox O2 Del Method 01/18/23 16:00 61 01/18/23 16:00 36.3 C L 72 16 135/64 95 Room Air 01/18/23 11:45 36.4 C L 55 L 14 101/65 94 Room Air 01/18/23 07:53 36.6 C 48 L 18 108/65 93 Room Air 01/18/23 07:24 45 L all noted and reviewed including below
[2023-01-18] MEDS: LIDOCAINE 5% 1 PATCH TD SCH (20:35)
--- NOTE | 2023-01-19 06:11 | Electrocardiogram Report ---
Test Reason : Blood Pressure : / mmHG Vent. Rate : 056 BPM Atrial Rate : 056 BPM P-R Int : 164 ms QRS Dur : 094 ms QT Int : 466 ms P-R-T Axes : 027 -18 011 degrees QTc Int : 449 ms Sinus bradycardia Minimal voltage criteria for LVH, may be normal variant ( R in aVL ) Borderline ECG When compared with ECG of 15-JAN-2023 10:50, QRS duration has decreased Confirmed by Andrea Thornton ([id number]) on 01/19/2023 6:11:37 AM Referred By: REFERRED SELF Confirmed By:Andrea Thornton
[2023-01-19] MEDS: APIXABAN 5 MG TABLET PO SCH (08:59)
[2023-01-19] MEDS: tiZANidine HCL 4 MG TABLET PO SCH (09:00)
[2023-01-19] MEDS: CYANOCOBALAMIN (B-12) 500 MCG TABLET PO SCH (09:00)
[2023-01-19] MEDS: MULTIVITAMIN TAB PO SCH (09:00)
[2023-01-19] MEDS: ACETAMINOPHEN 500 MG TAB PO SCH (09:00)
[2023-01-19] MEDS: DOCUSATE SODIUM/SENNA 50/8.6MG TAB PO SCH (09:00)
--- NOTE | 2023-01-19 14:04 | Hospitalist Progress Note ---
Date of Service January 19, 2023 Assessment & Plan (1) Asymptomatic hypertensive urgency: Plan: per admitting service notes with addendum: Secondary to intractable left flank/left abdominal pain likely muscular strain hypercoagulable state (hx PE and factor V Leiden mutation) on Eliquis hyperlipidemia on statin Rx Lumbar Spine MRI: 1. Advanced disc degeneration at L5-S1 with moderate disc degeneration at L1-2, L2-3, L3-4 and L4-5 with annular disc bulging flattening the ventral thecal sac and causing a mild subarticular recess stenosis at L2- 3 through L5-S1 without evidence of neural impingement. There is extensive bone marrow edema at L5-S1, which may be causing a central discogenic type lower back pain. 2. There is no spinal canal stenosis. 3. There is a mild right L4-5 and moderate right and severe left L5-S1 neuroforaminal stenosis with impingement of the bilateral L5 nerve ganglia. 4. There is mild facet joint arthropathy with mild synovitis. 5. Mild to moderate bilateral sacroiliac joint arthropathy. 6. No evidence of fracture, infection, tumor or arachnoiditis. 01/19 pain mostly resolved with 2 doses of Tizanidine Ortho consulted: pain not related to lumbar degenerative disease continue Tizanidine PRN, Tylenol PT/OT as outpatient advised to avoid heavy exercise at this time ff up with PCP in 1 week will need repeat Lumbar spine MRI in 6 months to ff up bone marrow edema at L5-s1 continue Eliquis plan of care discussed with patient and in detail and at length all questions answered they are understanding, agreeable, comfortable with the plan of care Admission and Anticipated Discharge Date Admission Date: January 17, 2023 Subjective ff up for abdominal pain, likely muscular etiology, etc seen in the room , comfortable states he feels fine overall abdominal pain resolved walking around multiple times in the hallways with no problems no problems with BM, urination no other symptoms states he is ready for discharge today Review of Systems Review of Systems: all noted and negative except for above Physical Exam Physical Exam: General- oriented x 3, not in distress, speaks in sentences with no effort or accessory muscle use Eyes- anicteric Neck- no JVD Lungs- clear breath sounds bilaterally, no rales/wheezes Heart- normal rate, regular rhythm; no murmurs Abdomen- normal bowel sounds, nondistended, soft, nontender Extremities- no pretibial edema, no calf tenderness Neuro- alert, oriented x 3; no gross focal neurologic deficits Skin- warm & dry Results & Data Results & Data Vital Signs (Past 12 Hours) Vital Signs Temp Pulse Pulse Pulse Resp BP Pulse Ox 01/19/23 12:13 36.4 C L 70 20 130/58 L 99 01/19/23 07:48 36.5 C 60 20 116/70 95 01/19/23 07:18 62 01/19/23 03:19 36.6 C 50 L 16 127/68 96 O2 Del Method 01/19/23 12:13 Room Air 01/19/23 07:48 Room Air 01/19/23 07:18 01/19/23 03:19 Room Air all noted and reviewed including below
--- NOTE | 2023-01-19 14:11 | Discharge Summary ---
Discharge Summary Date of Service January 19, 2023 Notes For Next Care Provider Medication Changes From Visit Tizanidine 1-2mg BID PRN Admission HPI Per Admitting Provider History obtained from patient, family, and records. Medical history significant for hypercoagulable state (hx PE and factor V Leiden mutation) on Eliquis, hyperlipidemia, hemochromatosis. 10 days history of intermittent achy left flank pain symptoms going to the abdomen followed by occasional nausea, emesis. No headache, no chest pain, no SOB. No rash. No hematuria. No recollection of recent trauma or exertion. Symptoms somewhat worsened by motion and ambulation. No leg radiation. Patient sent home after unremarkable work-up at the [facility] ER last January 08. Patient consulted sports therapist acquaintance last week. He was told that his pelvis was misaligned. Some improvement after manipulation done by sports therapist as per patient. A few days later, patient had worsening recurrence of left-sided flank pain going to the belly. Bowels somewhat hard to move. Patient seen at the ER yesterday. No acute pathology on CT abdomen and pelvis and lumbar imaging. Patient discharged on prednisone course. No improvement despite 1 dose of prednisone. Patient returned to ER for evaluation. SBP 220s upon arrival at the ER. Patient denies headache, chest pain, SOB symptoms. Medical History as above Surgical History : Left knee surgery Family History : Stroke, heart disease Personal/Social history : Non-smoker, no EtOH intake, retired building [employer] Admission Exam Per Admitting Provider GENERAL: Slightly uncomfortable, no respiratory distress SKIN: Normal color, warm HEENT: [place] palpebral conjunctivae, no ptosis, dry buccal mucosa NECK : Supple, no tenderness CHEST : CTA, no tenderness HEART : Bradycardic, no obvious murmurs ABDOMEN: Some distention, left-sided abdominal tenderness BACK : Low back tenderness, negative straight leg raise test EXTREMITIES : No LE swelling/tenderness, no other conspicuous deformities noted NEUROLOGIC : Coherent, no facial asymmetry, no other gross focality Principal Dx & Hospital Course #1 = Principal Diagnosis (1) Abdominal pain: per admitting service notes with addendum: Intractable left flank/left abdominal pain likely muscular strain hypercoagulable state (hx PE and factor V Leiden mutation) on Eliquis hyperlipidemia on statin Rx Lumbar Spine MRI: 1. Advanced disc degeneration at L5-S1 with moderate disc degeneration at L1-2, L2-3, L3-4 and L4-5 with annular disc bulging flattening the ventral thecal sac and causing a mild subarticular recess stenosis at L2- 3 through L5-S1 without evidence of neural impingement. There is extensive bone marrow edema at L5-S1, which may be causing a central discogenic type lower back pain. 2. There is no spinal canal stenosis. 3. There is a mild right L4-5 and moderate right and severe left L5-S1 neuroforaminal stenosis with impingement of the bilateral L5 nerve ganglia. 4. There is mild facet joint arthropathy with mild synovitis. 5. Mild to moderate bilateral sacroiliac joint arthropathy. 6. No evidence of fracture, infection, tumor or arachnoiditis. 01/19 pain mostly resolved with 2 doses of Tizanidine Ortho consulted: pain not related to lumbar degenerative disease continue Tizanidine PRN, Tylenol PT/OT as outpatient advised to avoid heavy exercise at this time ff up with PCP in 1 week will need repeat Lumbar spine MRI in 6 months to ff up bone marrow edema at L5- s1 continue Eliquis plan of care discussed with patient and in detail and at length all questions answered they are understanding, agreeable, comfortable with the plan of care Discharge Exam General- oriented x 3, not in distress, speaks in sentences with no effort or accessory muscle use Eyes- anicteric Neck- no JVD Lungs- clear breath sounds bilaterally, no rales/wheezes Heart- normal rate, regular rhythm; no murmurs Abdomen- normal bowel sounds, nondistended, soft, nontender Extremities- no pretibial edema, no calf tenderness Neuro- alert, oriented x 3; no gross focal neurologic deficits Skin- warm & dry Updated Medication List Medication Instructions Recorded Confirmed Type multivitamin 1 tab PO QAM 11/21/20 01/16/23 History pravastatin 40 mg tablet 80 mg PO HS 10/18/21 01/16/23 History loratadine 10 mg tablet (Claritin) 10 mg PO HS PRN Allergy Symptoms 11/06/21 01/16/23 History cholecalciferol (vitamin D3) 50 50 mcg PO DAILY 01/09/23 01/16/23 History mcg (2,000 unit) capsule omega-3 fatty acids-fish oil 684 1 cap PO DAILY 01/09/23 01/16/23 History mg-1,200 mg capsule,delayed release apixaban 5 mg tablet (Eliquis) 5 mg PO BID 01/15/23 01/16/23 History budesonide 0.25 mg/2 mL suspension See Rx Instructions .Route .COMPLEX 01/15/23 01/16/23 History for nebulization cyanocobalamin (vitamin B-12) 1,000 mcg PO DAILY 01/15/23 01/16/23 History 1,000 mcg tablet (Vitamin B-12) sodium bicarbonate-sodium See Rx Instructions .Route .COMPLEX 01/15/23 01/16/23 History chloride-neti pot nasal rinse with packet (Sinus Wash rinse device w/ packet) acetaminophen 500 mg tablet 1,000 mg (2 x 500 mg) PO TID PRN 01/19/23 01/16/23 Rx pain #20 tabs tizanidine 2 mg tablet 1 mg (1/2 x 2 mg) PO TID PRN 01/19/23 Rx muscle spasticity #14 tabs Hospital Stay Data Consultations 01/16/23 19:44 ED Decision to Admit Stat 01/17/23 03:31 Consult Orthopedic Spine Surgery Routine Diagnostic Imagining Performed Laboratory Results WBC 6.30 K/ul (4.8-10.8) 01/17/23 05:35 RBC 4.06 M/uL (4.70-6.10) L 01/17/23 05:35 Hgb 13.7 g/dl (14.0-18.0) L 01/17/23 05:35 Hct 40.2 % (42.0-52.0) L 01/17/23 05:35 MCV 99.0 fL (80.0-100.0) 01/17/23 05:35 MCH 33.7 pg (25.0-34.0) 01/17/23 05:35 MCHC 34.1 g/dL (32.0-36.0) 01/17/23 05:35 RDW Std Deviation 47.8 fL (36.4-46.3) H 01/17/23 05:35 RDW Coeff of Prasanth 13.1 % (11.5-14.5) 01/17/23 05:35 Plt Count 172 K/uL (130-400) 01/17/23 05:35 MPV 10.0 fL (9.4-12.4) 01/17/23 05:35 Immature Gran % (Auto) 0.2 % 01/17/23 05:35 Neut % (Auto) 64.3 % 01/17/23 05:35 Lymph % (Auto) 26.8 % 01/17/23 05:35 [place] % (Auto) 8.1 % 01/17/23 05:35 Eos % (Auto) 0.0 % 01/17/23 05:35 Baso % (Auto) 0.6 % 01/17/23 05:35 Neut # (Auto) 4.05 K/uL (1.40-6.50) 01/17/23 05:35 Lymph # (Auto) 1.69 K/uL (1.20-3.40) 01/17/23 05:35 [place] # (Auto) 0.51 K/uL (0.11-0.59) 01/17/23 05:35 Eos # (Auto) 0.00 K/uL (0.00-0.50) 01/17/23 05:35 Baso # (Auto) 0.04 K/uL (0.00-0.20) 01/17/23 05:35 Immature Gran # (Auto) 0.01 K/uL (0.01-0.20) 01/17/23 05:35 PT 11.3 Seconds (9.0-12.0) 01/16/23 17:24 INR 1.0 (0.9-1.1) 01/16/23 17:24 APTT 28.2 Seconds (21.0-31.0) 01/17/23 14:14 PTT Ratio 1.0 01/17/23 14:14 Sodium 138 mmol/L (136-145) 01/17/23 14:14 Potassium 3.3 mmol/L (3.5-5.1) L 01/17/23 14:14 Chloride 104 mmol/L (98-107) 01/17/23 14:14 Carbon Dioxide 28 mmol/L (21-32) 01/17/23 14:14 Anion Gap 6 (3-11) 01/17/23 14:14 BUN 19 mg/dl (6-23) 01/17/23 14:14 Creatinine 1.30 mg/dl (0.6-1.4) 01/17/23 14:14 Est Cr Clr Drug Dosing 48.2 ml/min 01/17/23 14:14 Est GFR ( Amer) 62.3 ml/min 01/17/23 14:14 Est GFR (Non-Af Amer) 53.8 ml/min 01/17/23 14:14 BUN/Creatinine Ratio 14.6 (10-20) 01/17/23 14:14 Glucose 126 mg/dl (70-99(Fasting)) H 01/17/23 14:14 Estimat Average Glucose 114 mg/dl 01/16/23 17:24 Hemoglobin A1c 5.6 % (4.5-5.6) 01/16/23 17:24 Lactate 1.4 mmol/L (0.4-2.0) 01/16/23 17:24 Calcium 9.0 mg/dl (8.6-10.3) 01/17/23 14:14 Total Bilirubin 0.9 mg/dl (0.2-1.0) 01/16/23 17:24 AST 19 U/L (13-39) 01/16/23 17:24 ALT 16 U/L (7-52) 01/16/23 17:24 Alkaline Phosphatase 63 U/L (34-104) 01/16/23 17:24 Total Creatine Kinase 59 U/L (30-223) 01/17/23 05:38 Troponin I High Sens 8.8 pg/ml (0-20) 01/16/23 17:24 Total Protein 7.9 gm/dl (6.0-8.3) 01/16/23 17:24 Albumin 4.4 gm/dl (3.4-5.0) 01/16/23 17:24 Globulin 3.5 gm/dl (2.5-4.0) 01/16/23 17:24 Albumin/Globulin Ratio 1.3 (0.9-2) 01/16/23 17:24 Lipase 15 U/L (11-82) 01/16/23 17:24 TSH 1.982 uIu/ml (0.300-4.500) 01/16/23 17:24 Urine Color Yellow 01/16/23 17:34 Urine Appearance Clear (Clear) 01/16/23 17:34 Urine pH 7.5 (4.5-7.5) 01/16/23 17:34 Ur Specific [place] 1.017 (1.000-1.030) 01/16/23 17:34 Urine Protein 2+ (Negative) H 01/16/23 17:34 Urine Glucose (UA) Trace (Negative) H 01/16/23 17:34 Urine Ketones 1+ (Negative) H 01/16/23 17:34 Urine Blood Negative (Negative) 01/16/23: Urine Nitrite Negative (Negative) 01/16/23: Urine Bilirubin Negative (Negative) 01/16/23: Urine Urobilinogen Negative (Negative) 01/16/23 17:34 Ur Leukocyte Esterase Negative (Negative) 01/16/23:34 Urine WBC (Auto) 1-5 /hpf (0-5) 01/16/23: Urine RBC (Auto) 0-4 /hpf (0-4) 01/16/23: U Hyaline Cast (Auto) 0 /lpf (0-5) 01/16/23: U Epithel Cells (Auto) 5-10 /lpf (0-5) H 01/16/23 17:34 Urine Bacteria (Auto) Negative (Negative) 01/16/23 17:34 Lyme Disease IgG Ab Negative (Negative) 01/16/23 17: Lyme Disease IgM Ab Negative (Negative) 01/16/23 17:25 Impressions Abdomen/Pelvis CTA 01/16/23 17:07 CT ANGIOGRAPHY OF THE ABDOMEN AND PELVIS CLINICAL HISTORY: Left-sided abdominal pain. COMPARISON STUDY: CT of the abdomen and pelvis January 15, 2023. TECHNIQUE: Helical axial images of the abdomen and pelvis were obtained during arterial phase following intravenous injection of 118 cc of Optiray 320 IV. Sagittal and coronal reconstructions were viewed as well as maximal intensity projections on an independent 3-D workstation. Automated exposure control was utilized for the study. A dose lowering technique was utilized adhering to the principles of ALARA. FINDINGS: No pneumatosis, free air or portal venous gas is present. The caliber of the abdominal aorta is normal. There is mild plaque within the abdominal aorta. The branch vessels are patent. There is no stenosis or dissection or aneurysm within the abdomen or pelvis. Arterial phase images of liver, spleen, adrenal glands and pancreas are unremarkable. There is no biliary or pancreatic ductal dilatation. There is no peripancreatic or pericholecystic infiltration. There is no hydronephrosis. There are no urinary calculi. A few left renal cysts are present. There is no evidence for a bowel obstruction. No bowel wall thickening is identified. No acute fractures are within the visualized skeletal structures are present. IMPRESSION: 1. Normal caliber abdominal aorta. Mild atherosclerotic plaque. Patent vessels. No dissection or aneurysm within the abdomen or pelvis. 2. No acute process within the abdomen or pelvis on arterial phase exam. ACT 112: Negative or not required by law. Electronically signed by: Robert Mendez M.D. 01/16/2023 6:55 PM Lumbar Spine MRI 01/16/23 20:55 Exam(s): MRI L SPINE Without Contrast EXAM: MR Lumbar Spine Without Intravenous Contrast CLINICAL HISTORY: Reason for exam: back pain. TECHNIQUE: Magnetic resonance images of the lumbar spine without intravenous contrast in multiple planes. COMPARISON: Comparison made to prior CT scan of the lumbar spine from January 15, 2023. FINDINGS: Vertebrae: There are 5 lumbar type vertebral bodies with a mild generalized curve to the left and normal lumbar lordosis. The S1 vertebral body is transitional. There is mild grade 1 retrolisthesis of L3 on L4 measuring 2 mm. Otherwise, there is normal vertebral body height and alignment. The bone was signal is heterogeneous with reactive endplate changes with extensive edema in the left L4-5 endplates and areas of focal fat or venous malformations. No acute fracture. Mild to moderate sacroiliac joint arthropathy. Spinal cord: The conus is normal size, shape and signal. Piercings, terminating at T12. Soft tissues: Moderate atrophy of the paraspinous and intraspinous musculature. The iliopsoas muscles are unremarkable. The aorta and IVC flow voids are intact. The visualized kidneys are unremarkable. DISCS/SPINAL CANAL/NEURAL FORAMINA: L1-L2: Moderate disc degeneration with annular disc bulge flattening the ventral thecal sac, with disc extending to the neural foramina without evidence of impingement or significant stenosis. There is mild facet arthropathy with mild synovitis. L2-L3: Moderate disc degeneration with annular disc bulge asymmetric to the left causing mild subarticular recess stenosis, with disc extending into the neural foramina without evidence of impingement or significant stenosis. There is mild facet arthropathy with mild synovitis. L3-L4: Moderate disc degeneration with annular disc bulge just medial to the left causing a mild subarticular recess stenosis, with disc and osteophyte extend to the neural foramina without evidence of impingement or significant stenosis. There is mild facet arthropathy with mild synovitis. L4-L5: Moderate disc degeneration with annular disc bulge and superimposed 2 mm right paracentral disc protrusion causing a mild subarticular recess stenosis with a disc and osteophyte extend into the neural foramina causing a mild right stenosis without evidence of neural impingement. There is mild facet arthropathy with mild synovitis. L5-S1: Advanced disc degeneration with annular disc bulge asymmetric to the left causing a mild subarticular recess stenosis with disc extending to the neural foramina causing a moderate right and severe left stenosis with impingement of the L5 nerve root ganglia. There is mild facet arthropathy with mild synovitis. IMPRESSION: 1. Advanced disc degeneration at L5-S1 with moderate disc degeneration at L1-2, L2-3, L3-4 and L4-5 with annular disc bulging flattening the ventral thecal sac and causing a mild subarticular recess stenosis at L2- 3 through L5-S1 without evidence of neural impingement. There is extensive bone marrow edema at L5-S1, which may be causing a central discogenic type lower back pain. 2. There is no spinal canal stenosis. 3. There is a mild right L4-5 and moderate right and severe left L5-S1 neuroforaminal stenosis with impingement of the bilateral L5 nerve ganglia. 4. There is mild facet joint arthropathy with mild synovitis. 5. Mild to moderate bilateral sacroiliac joint arthropathy. 6. No evidence of fracture, infection, tumor or arachnoiditis. Electronically signed by: Ivonne Dunlap MD 01/17/23 02:42 AM Pending Results Patient Have Any Pending Studies at Discharge: No Discharge Instructions Given to Patient (Per Discharging Provider) PLEASE REFER TO YOUR NEW MEDICATION LIST AND FOLLOW INSTRUCTIONS CAREFULLY. YOUR NEW MEDICATIONS INCLUDE: Tizanidine- muscle relaxant, as needed for pain You can also use over the counter lidoderm patch. No heavy exercise, lifting for 1-2 weeks. PLEASE CALL YOUR PRIMARY CARE PHYSICIAN OR RETURN TO THE ER IF WITH WORSENING OF SYMPTOMS, INCLUDING worsening abdominal pain, fever/chills, back pain, leg weakness/numbness, etc FOLLOW UP WITH PRIMARY CARE PHYSICIAN IN 1 WEEK. CONTINUE OUTPATIENT PHYSICAL THERAPY. TAKE CARE. Total Time Total Time Spent Total Time Spent (In Minutes): >30 minutes
== END 2023-01-19 14:31 | disposition home or self-care (01) | DRG 914 ==
LOC: ED 16:27 → EDINP 16:27 → 2N 01-17 00:10

== ENCOUNTER 2024-04-06 12:35 | Inpatient (IN) ==
--- NOTE | 2024-04-06 13:03 | Emergency Department Note ---
History of Present Illness General Chief complaint: Swelling/Edema to Extremity Stated complaint: LT KNEE, SWELLING, INJURY OF LONG AGO Time Seen by Provider: 04/06/24 12:52 History of Present Illness Maximum Pain Intensity: 8 This is a 73-year-old male who presents to the emergency department via private vehicle accompanied by with complaints of "left knee pain". The patient notes that this past Thursday without trauma or injury he began with left knee pain. He notes increased warmth and swelling to the knee. The knee is quite painful. Current pain /. He denies any associated fevers, chills, nausea or vomiting. No chest pain or shortness of breath. This is the left knee only, does not affect the right side. Currently on Eliquis noting history of DVT/PE. Last dose of Eliquis was 7 AM this morning. No missed doses. History of factor V Leiden. Patient notes he cannot flex or extend the left knee secondary to severe pain. Home Medications Medication Instructions Recorded Confirmed Type multivitamin 1 tab PO QAM 11/21/20 04/06/24 History pravastatin 40 mg tablet 40 mg PO HS 10/18/21 04/06/24 History loratadine 10 mg tablet (Claritin) 10 mg PO HS PRN Allergy Symptoms 11/06/21 04/06/24 History omega-3 fatty acids-fish oil 684 1 cap PO DAILY 01/09/23 04/06/24 History mg-1,200 mg capsule,delayed release apixaban 5 mg tablet (Eliquis) 5 mg PO BID 01/15/23 04/06/24 History budesonide 0.25 mg/2 mL suspension See Rx Instructions .Route .COMPLEX 01/15/23 04/06/24 History for nebulization cyanocobalamin (vitamin B-12) 1,000 mcg PO DAILY 01/15/23 04/06/24 History 1,000 mcg tablet (Vitamin B-12) sodium bicarbonate-sodium See Rx Instructions .Route .COMPLEX 01/15/23 04/06/24 History chloride-neti pot nasal rinse with packet (Sinus Wash rinse device w/ packet) acetaminophen 500 mg tablet 1,000 mg (2 x 500 mg) PO TID PRN 01/19/23 04/06/24 Rx pain #20 tabs iron,carbonyl 65 mg-vitamin C 125 1 tab PO DAILY 04/06/24 04/06/24 History mg tablet,delayed release (Vitron-C) tizanidine 2 mg tablet 2 mg PO TID PRN muscle spasticity 04/06/24 04/06/24 History Allergies Allergy/AdvReac Type Severity Reaction Status Date / Time No Known Drug Allergies Allergy Unknown . Verified 04/06/24 16:22 Past Med/Surg History Problem List (Updated 04/06/24 @ 16:07 by Michael Elaine DO) Knee pain, left Abdominal pain Asymptomatic hypertensive urgency Abdominal pain, acute, left lower quadrant (Acute) Sinusitis with nasal polyps Chronic sinusitis Acquired deviated nasal septum Chronic rhinitis Hereditary deficiency of other clotting factors Dysphagia Hearing loss hearing aids-bilat. Pulmonary embolism 2009-when they found out he had factor V; currently taking eliquis Hemochromatosis "was taking iron pills and had too much in my blood, quit taking 3-4 months ago" Latent [place] treated [place] by the [place] department of the [facility]" Hyperlipidemia Medical History (Updated 04/06/24 @ 16:07 by Michael Elaine DO) History of cough pt stated "i have had this cough for about a month. I notified my dr and he asked me to get a covid test done. tested around 10/2021 at the [place] [facility] in [place]. test came back negative." History of dysphagia "sometimes I feel like I am choking without eating anything, having trouble breathing through my nose as well, has been going on for the last 3 years. it comes and goes." Hx of factor V Leiden mutation Surgical History (Updated 04/06/24 @ 16:01 by Michael Elaine DO) Hx of colonoscopy History of knee surgery LEFT knee tendon reconstruction with muscle flap- 1971 Family History Sister Cancer Hypertension Heart disease Mother Stroke Hypertension Other No family history of allergies No family history of bleeding disorder Denies family history of Asthma Social History Smoking Status: Never smoker Second Hand Exposure: No; Do You Dip or Chew Tobacco: No; Hx Alcohol Use: No Hx Substance Use: No Preferred Language: Armenian Communication Ability: Effective Human Projectile Required: No Beliefs That Will Affect Care: None marital status: Current Living Situation: Spouse current occupational status: retired Feels Safe at Home: Yes Assistive Devices: Glasses Review of Systems A total of 10 systems reviewed and were otherwise negative Physical Exam Vital Signs Vital Signs - 24 hr 04/06/24 12:38 04/06/24 13:43 04/06/24 13:43 Temperature 36.6 C Temperature Source Temporal Artery Scan Pulse Rate 81 62 Pulse Rate [Apical] 62 Respiratory Rate 17 18 18 Respiratory Effort / Characteristics Respiratory Depth Blood Pressure 190/87 H Blood Pressure [Left Arm] 160/77 H Blood Pressure Mean 121 Blood Pressure Mean [Left Arm] 104 Blood Pressure Position [Left Arm] Pulse Oximetry 95 96 95 Oxygen Delivery Method Room Air Room Air Room Air Sepsis Recent Fever Within 48 Hours No Sepsis New/Unexplained Change in Mental Status N/A Sepsis Action Taken by Nursing No Action Required 04/06/24 13:44 04/06/24 15:00 Temperature Temperature Source Pulse Rate 64 Pulse Rate [Apical] 85 Respiratory Rate 19 Respiratory Effort / Characteristics Non-Labored Spontaneous Respiratory Depth Normal Blood Pressure Blood Pressure [Left Arm] 153/81 H Blood Pressure Mean Blood Pressure Mean [Left Arm] 105 Blood Pressure Position [Left Arm] Lying Pulse Oximetry 96 Oxygen Delivery Method Room Air Sepsis Recent Fever Within 48 Hours Sepsis New/Unexplained Change in Mental Status Sepsis Action Taken by Nursing VITAL SIGNS - Vital signs and nursing notes were reviewed. Hypertensive, otherwise stable and afebrile. GENERAL -73-year-old male appearing his stated age who is in no acute distress but appears to be uncomfortable. Communicates well with provider and answers questions appropriately. SKIN - Without rashes. No meningeal or petechial rash. Left knee is circumferentially edematous with significant increased warmth of the left knee compared to the right. HEAD - NC/AT. EYES - PERRL with EOMI bilaterally. Sclera anicteric. EARS - No deformities of external structures noted on gross examination bilaterally. NOSE - Midline and without cyanosis. No epistaxis or purulent drainage noted. MOUTH/OROPHARYNX - Without perioral cyanosis. NECK - Neck with FROM. No nuchal rigidity. LUNGS - Chest wall symmetric without accessory muscle use, intercostals retractions, or central cyanosis. Normal vesicular breath sounds CTA B/L. No wheezes, rales, or rhonchi appreciated. CARDIAC - RRR ABDOMEN - Abdominal contour normal without pulsations or visible masses. BS normoactive all four quadrants. No tenderness, palpable masses, hepatosplenomegaly, or ascites noted. EXTREMITIES - No clubbing or peripheral cyanosis. +5/5 strength noted in UE/LE bilaterally. NEUROLOGIC - Cranial nerves II through XII grossly intact. PSYCH -alert, oriented and pleasant on exam. Course Administered Medications Discontinued Medications Hydromorphone HCl (Hydromorphone Inj 0.5 Mg/0.5 Ml Syr) 0.5 mg IV NOW STA Stop: 04/06/24 14:06 Last Admin: 04/06/24 14:21 Dose: 0.5 mg Documented By: JAMAL Hydromorphone HCl (Hydromorphone Inj 0.5 Mg/0.5 Ml Syr) 0.5 mg IV NOW STA Stop: 04/06/24 15:59 Last Admin: 04/06/24 16:08 Dose: 0.5 mg Documented By: GARRET Lidocaine HCl (Lidocaine 2% Local 50 Ml Vial) 4 ml INFIL ONE ONE Stop: 04/06/24 15:16 Last Admin: 04/06/24 15:49 Dose: 4 ml Documented By: RUBENS Morphine Sulfate (Morphine Sulfate 2 Mg/Ml Carp) 2 mg IV NOW STA Stop: 04/06/24 13:15 Last Admin: 04/06/24 13:39 Dose: 2 mg Documented By: JAMAL Medical Decision Making Laboratory Data 04/06/24 13:10 04/06/24 13:10 Lab Results 04/06/24 04/06/24 04/06/24 Range/Units 13:10 15:35 16:05 WBC 6.20 (4.8-10.8) K/ul RBC 3.67 L (4.70-6.10) M/uL Hgb 11.4 L (14.0-18.0) g/dl Hct 35.0 L (42.0-52.0) % MCV 95.4 (80.0-100.0) fL MCH 31.1 (25.0-34.0) pg MCHC 32.6 (32.0-36.0) g/dL RDW Std Deviation 48.5 H (36.4-46.3) fL RDW Coeff of Prasnath 14.0 (11.5-14.5) % Plt Count 261 (130-400) K/uL MPV 9.0 L (9.4-12.4) fL Immature Gran % (Auto) 0.2 % Neut % (Auto) 75.8 % Lymph % (Auto) 12.6 % [place] % (Auto) 10.8 % Eos % (Auto) 0.0 % Baso % (Auto) 0.6 % Neut # (Auto) 4.70 (1.40-6.50) K/uL Lymph # (Auto) 0.78 L (1.20-3.40) K/uL [place] # (Auto) 0.67 H (0.11-0.59) K/uL Eos # (Auto) 0.00 (0.00-0.50) K/uL Baso # (Auto) 0.04 (0.00-0.20) K/uL Immature Gran # (Auto) 0.01 (0.01-0.20) K/uL ESR 89 H (0-20) mm/hr PT 11.2 (9.0-12.0) Seconds INR 1.0 (0.9-1.1) APTT 29 (21-31) Seconds PTT Ratio 1.1 Sodium 138 (136-145) mmol/L Potassium 4.5 (3.5-5.1) mmol/L Chloride 103 (98-107) mmol/L Carbon Dioxide 31 (21-32) mmol/L Anion Gap 4 (3-11) BUN 14 (6-23) mg/dl Creatinine 0.89 (0.6-1.4) mg/dl Est Cr Clr Drug Dosing 69.4 ml/min eGFR 89.37 BUN/Creatinine Ratio 15.7 (10-20) Glucose 131 H (70-99(Fasting)) mg/dl Lactate 1.1 (0.4-2.0) mmol/L Uric Acid 2.5 L (2.6-7.2) mg/dl Calcium 9.3 (8.6-10.3) mg/dl Total Bilirubin 0.6 (0.2-1.0) mg/dl AST 15 (13-39) U/L ALT 13 (7-52) U/L Alkaline Phosphatase 60 (34-104) U/L C-Reactive Protein 8.12 H (0-0.5) mg/dl Total Protein 7.9 (6.0-8.3) gm/dl Albumin 3.6 (3.4-5.0) gm/dl Globulin 4.3 H (2.5-4.0) gm/dl Albumin/Globulin Ratio 0.8 L (0.9-2) Fluid Comment Synovial Crystals Lyme Disease Screen Negative (Negative) Imaging Data Radiologist's Impression: Knee X-Ray 04/06/24 12:59 XR knee LT 3V CLINICAL HISTORY: Atraumatic L knee pain COMPARISON: None FINDINGS: There are atherosclerotic calcifications. There is moderate joint space narrowing and osteophytosis. There is a prominent joint effusion. There are multiple calcifications above the patella within the region of the joint effusion. No acute fracture or dislocation. IMPRESSION: 1. No acute fracture seen. 2. Osteoarthritis. 2. Suprapatellar joint effusion with calcifications, intra-articular bodies versus sequela of chronic synovitis. ACT 112: Negative or not required by law. Electronically signed by: Bartolo Ferreira M.D. 04/06/2024 1:31 PM Venous Doppler Study 04/06/24 12:59 LEFT LOWER EXTREMITY VENOUS DOPPLER HISTORY: Acute pain and swelling of the left lower extremity Atraumatic L knee pain COMPARISON STUDY: Radiographs of the left knee of same day FINDINGS: Complex left knee joint effusion redemonstrated along with synovial thickening. There is normal compressibility, flow, and augmentation within the left lower extremity deep venous system. IMPRESSION: 1. No DVT within the left lower extremity. 2. Joint effusion of the knee. ACT 112: Negative or not required by law. Electronically signed by: Sanay Mcdonough M.D. 04/06/2024 1:47 PM MDM Narrative Patient was seen and evaluated as above in room D05. Review was performed of triage nursing notes and vital signs. I did review pertinent previous visits and patient history. After obtaining a thorough history and physical examination the above work up was performed. Patient presents to us today for evaluation of atraumatic left knee pain and circumdental edema to the knee as well as increased warmth to the left knee. He is concerned about possible DVT. He notes history of DVT and currently on Eliquis. No missed doses. There is no chest pain or shortness of breath. No fever. Options of care were discussed with the patient. IV access with established labs were drawn. He was medicated with IV morphine for pain which he notes did not help at all. Dilaudid was then ordered. Minimal relief with Dilaudid. Labs were drawn no leukocytosis. Minor stable anemia noted with hemoglobin of 11.4. Coags normal. Metabolic panel does reveal mild hyperglycemia 131. Uric acid is not elevated. ESR and CRP are markedly elevated. Lyme testing is negative. X-ray without fracture. There are calcifications noted and joint effusion. Furthermore ultrasound left lower extremity negative for DVT. At this time with the patient having atraumatic left knee pain with significantly elevated inflammatory markers and trouble controlling pain with even IV analgesia, I did like to discuss this with orthopedics. They came to bedside and joint aspiration was performed. Please refer to their note regarding procedure. Orthopedic recommendation is admission to the medical service trending cultures. They also recommend n.p.o. after midnight, holding the Eliquis pending culture results as the patient may require operative intervention if infection is identified. I did correspond with the pathologist. Pseudogout was noted on the crystal analysis. Cultures are pending at this time. I discussed case with the hospitalist service. Please refer to further documentation regarding his stay. GCS: 15 In the evaluation and treatment of this patient the following differential diagnoses were entertained: DVT, septic joint, gouty arthritis, Lyme arthritis, strain, sprain, fracture, dislocation, subluxation, contusion, hemarthrosis, among others Impression & Plan Knee pain, left, Effusion of knee joint, left, Pseudogout of left knee Discharge Plan Visit Data Chief Complaint: Swelling/Edema to Extremity Stated Complaint: LT KNEE, SWELLING, INJURY OF LONG AGO ED Provider: Emory Delgadillo ED Midlevel Provider: Arvin Pickett Prescriptions Prescriptions: No Action loratadine [Claritin] 10 mg tablet 10 mg PO HS PRN (Reason: Allergy Symptoms) pravastatin 40 mg tablet 40 mg PO HS multivitamin Tablet 1 tab PO QAM omega-3 fatty acids-fish oil 684-1,200 mg Capsule,Delayed Release(Dr/Ec) 1 cap PO DAILY cyanocobalamin (vitamin B-12) [Vitamin B-12] 1,000 mcg Tablet 1,000 mcg PO DAILY budesonide 0.25 mg/2 mL Suspension For Nebulization See Rx Instructions .ROUTE .COMPLEX Rx Instructions: Adds to neti pot and uses to rinse nasal cavities twice daily Eliquis 5 mg Tablet 5 mg PO BID Nasal Relief Sinus Wash w/Neti Packet With Rinse Device See Rx Instructions .ROUTE .COMPLEX Rx Instructions: Uses it twice daily w/ budesonide. acetaminophen 500 mg Tablet 1,000 mg PO TID PRN (Reason: pain) Qty: 20 0RF Vitron-C 65 mg iron- 125 mg Tablet,Delayed Release (Dr/Ec) 1 tab PO DAILY tizanidine 2 mg tablet 2 mg PO TID PRN (Reason: muscle spasticity)
[2024-04-06 13:28] LABS: Basophils # (auto) 0.04 K/uL (0.00-0.20); Basophils % (auto) 0.6 %; Hemoglobin 11.4 g/dl (14.0-18.0); Immature Granulocytes # (auto) 0.01 K/uL (0.01-0.20); Immature Granulocytes % (auto) 0.2 %; Lymphocytes # (auto) 0.78 K/uL (1.20-3.40); Lymphocytes % (auto) 12.6 %; Mean Corpuscular Hemoglobin 31.1 pg (25.0-34.0); Mean Corpuscular Hgb Conc 32.6 g/dL (32.0-36.0); Mean Corpuscular Volume 95.4 fL (80.0-100.0); Monocytes # (auto) 0.67 K/uL (0.11-0.59); Monocytes % (auto) 10.8 %; Neutrophils % (auto) 75.8 %; Platelet Count 261 K/uL (130-400); RDW Standard Deviation 48.5 fL (36.4-46.3); Red Blood Count 3.67 M/uL (4.70-6.10)
--- NOTE | 2024-04-06 13:32 | XRay Report ---
XR knee LT 3V CLINICAL HISTORY: Atraumatic L knee pain COMPARISON: None FINDINGS: There are atherosclerotic calcifications. There is moderate joint space narrowing and oste ophytosis. There is a prominent joint effusion. There are multiple calcifications above the patella w ithin the region of the joint effusion. No acute fracture or dislocation. IMPRESSION: 1. No acute fracture seen. 2. Osteoarthritis. 2. Suprapatellar joint effusion with calcifications, intra-articular bodies versus sequela of chronic synovitis. ACT 112: Negative or not required by law. Electronically signed by: Bartolo Ferreira M.D. 04/06/2024 1:31 PM
[2024-04-06] MEDS: MoRPHine SULFATE 2 MG/ML CARP IV STA (13:39)
[2024-04-06 13:48] LABS: Albumin Globulin Ratio 0.8 (0.9-2); Albumin Level 3.6 gm/dl (3.4-5.0); BUN Creatinine Ratio 15.7 (10-20); Bilirubin,Total 0.6 mg/dl (0.2-1.0); C Reactive Protein 8.12 mg/dl (0-0.5); Calcium 9.3 mg/dl (8.6-10.3); Creatinine Clr Calc Pharmacy 69.4 ml/min; Globulin 4.3 gm/dl (2.5-4.0); Potassium 4.5 mmol/L (3.5-5.1); Total Protein 7.9 gm/dl (6.0-8.3); Uric Acid 2.5 mg/dl (2.6-7.2)
--- NOTE | 2024-04-06 13:48 | Ultrasound Report ---
LEFT LOWER EXTREMITY VENOUS DOPPLER HISTORY: Acute pain and swelling of the left lower extremity Atraumatic L knee pain COMPARISON STUDY: Radiographs of the left knee of same day FINDINGS: Complex left knee joint effusion redemonstrated along with synovial thickening. There is no rmal compressibility, flow, and augmentation within the left lower extremity deep venous system. IMPRESSION: 1. No DVT within the left lower extremity. 2. Joint effusion of the knee. ACT 112: Negative or not required by law. Electronically signed by: Sanya Mcdonough M.D. 04/06/2024 1:47 PM
[2024-04-06 13:59] LABS: Partial Thromboplastin Ratio 1.1; Partial Thromboplastin Time 29 Seconds (21-31); Prothrombin Time 11.2 Seconds (9.0-12.0)
[2024-04-06] MEDS: HYDROmorphone INJ 0.5 MG/0.5 ML SYR IV STA ×2 (14:21→16:08)
[2024-04-06] MEDS ORDERED: LIDOCAINE 2% MPF LOCAL 5 ML VIAL INFIL ONE (15:05)
[2024-04-06] MEDS: LIDOCAINE 2% LOCAL 50 ML VIAL INFIL ONE (15:49)
--- NOTE | 2024-04-06 16:06 | Orthopedic Consultation ---
Date of Consultation April 06, 2024 Assessment & Plan (1) Knee pain, left: - Patient has a large joint effusion with significant pain with passive range of motion, this is concerning for possible septic arthritis versus inflammatory arthritis, especially in the setting of elevated ESR and CRP -ESR 89, CRP 8.12, WBC 6.2 -Lyme titer negative -A discussion was had with the patient and his significant other at bedside regarding physical examination findings and concern for possible septic arthritis. It was recommended that a left knee joint aspiration be obtained for synovial fluid analysis to further evaluate for possible septic arthritis versus inflammatory arthritis. Verbally I discussed the risks, benefits, and alternatives to the knee aspiration. Specifically I discussed risk of infection, bleeding, nerve or blood vessel damage, incomplete resolution of symptoms or pain, need for additional procedures, need for surgical procedures, and need for repeat aspiration. Verbal consent was obtained from the patient for left knee aspiration. -Left knee aspiration was performed, please see separate procedure note for full details. In short, the left superior lateral knee skin was cleansed with Betadine, local anesthesia was performed with 2% plain lidocaine 3 cc into the intended aspiration site. Left knee was then aspirated utilizing an 18-gauge needle 80 cc of fluid was obtained which was cloudy in appearance. -Following the aspiration sterile Band-Aid was applied and a lightly compressive Fidencio bandage was applied to the left knee. -Left knee synovial fluid sent to lab for Lyme PCR, cell count with differential, crystal analysis, Gram stain, aerobic and anaerobic cultures. Cr ystal analysis shows CPPD. Will monitor for further results. -We recommend the patient be admitted to medicine for further observation, we recommend that his Eliquis be held if medically indicated for potential surgery. -Patient will be n.p.o. at midnight as we will monitor for culture results tomorrow. Should cultures come back positive we recommend operative treatment for septic arthritis. This would likely be done arthroscopically versus open. -Ok with heparin drip per medicine for DVT prophlaxyis given Factor 5 Leiden mutation and recent Covid positive. Hold at 0700 on 04/07/24 for possible surgical intervention. -Bedrest -Ice, elevate left knee for pain and swelling -Pain medications as needed -Treatment, assessment, and plan reviewed with Dr. Henriquez. Supervising Physician Co-Signing Physician Notes I saw and examined the patient, formulated the plan, and agree with the above note. Knee was aspirated under my direction. Initial findings of 17,000 white blood cells and a negative Gram stain are not consistent with a infection. Crystals were positive for pseudogout. Will keep him n.p.o. after midnight tonight and await his culture results tomorrow. History of Present Illness Reason for Consultation: Left knee effusion, concern for septic arthritis History of Present Illness This patient is a 73-year-old male with history of factor V Leiden on Eliquis, PE, and hemochromatosis who presents to the emergency department today for evaluation of left knee pain and effusion. Patient states that starting on Thursday he began to have swelling and pain in his left knee which has progressively worsened and spread throughout the knee. He states that the pain has been progressively worsening and is to the point today where he has difficulty with walking or bending his knee. He denies any history of trauma or specific injury to the knee, he did not bump it on any objects or have a fall recently. He denies any history of hemarthrosis. He denies any numbness or tingling about the left lower extremity. He denies any history of similar episodes in the left knee in the past. He denies any similar episodes of pain and swelling in any other joints in the past. He denies any history of gout, pseudogout, or rheumatoid arthritis. Patient has recently had other respiratory illnesses including COVID, pleural effusion, and chronic cough which began in November. He denies any recent fever or chills. He has not had any recent dietary changes, has not had any increase in red meat consumption. Of note he has a history of left knee surgical tendon reconstruction secondary to injury sustained in the [place], he also had a muscle flap about the left knee. The surgery was in about 1971 Allergies Allergy/AdvReac Type Severity Reaction Status Date / Time No Known Drug Allergies Allergy Unknown . Verified 04/06/24 16:22 Home Medications Medication Instructions Recorded Confirmed Type multivitamin 1 tab PO QAM 11/21/20 04/06/24 History loratadine 10 mg tablet (Claritin) 10 mg PO HS PRN Allergy Symptoms 11/06/21 04/06/24 History omega-3 fatty acids-fish oil 684 1 cap PO DAILY 01/09/23 04/06/24 History mg-1,200 mg capsule,delayed release apixaban 5 mg tablet (Eliquis) 5 mg PO BID 01/15/23 04/06/24 History budesonide 0.25 mg/2 mL suspension See Rx Instructions .Route .COMPLEX 01/15/23 04/06/24 History for nebulization cyanocobalamin (vitamin B-12) 1,000 mcg PO DAILY 01/15/23 04/06/24 History 1,000 mcg tablet (Vitamin B-12) sodium bicarbonate-sodium See Rx Instructions .Route .COMPLEX 01/15/23 04/06/24 History chloride-neti pot nasal rinse with packet (Sinus Wash rinse device w/ packet) acetaminophen 500 mg tablet 1,000 mg (2 x 500 mg) PO TID PRN 01/19/23 04/06/24 Rx pain #20 tabs ascorbic acid (vitamin C) 500 mg 250 mg PO DAILY 04/06/24 04/06/24 History tablet ferrous sulfate 325 mg (65 mg 325 mg PO DAILY 04/06/24 04/06/24 History iron) tablet omeprazole 20 mg capsule,delayed 20 mg PO DAILY 04/06/24 04/06/24 History release pravastatin 80 mg tablet 80 mg PO HS 04/06/24 04/06/24 History tizanidine 2 mg tablet 2 mg PO TID PRN muscle spasticity 04/06/24 04/06/24 History Patient History Medical History History of cough pt stated "i have had this cough for about a month. I notified my dr and he asked me to get a covid test done. tested around 10/2021 at the [place] urgent [facility] [place]. test came back negative." History of dysphagia "sometimes I feel like I am choking without eating anything, having trouble b reathing through my nose as well, has been going on for the last 3 years. 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 Physical Exam Constitutional: General: Resting in bed, appears in slight distress secondary to knee pain. Musculoskeletal: Left knee examination: Skin about the left knee is clean dry and intact without any erythema. There is a well-healed surgical incision about the anterior and medial aspect of the left knee which has no erythema, drainage, or dehiscence. There is a large effusion about the left knee Patient is diffusely tender to palpation about the anterior, superior, inferior, medial and lateral aspects of the left knee. Active range of motion severely limited secondary to pain patient is able to actively extend to 0 degrees, he can flex to about 20 degrees. Passive range of motion of left knee 0-20 degrees limited secondary to pain and muscle guarding. Negative logroll Sensation is intact to light touch L4-S1 dermatomes EHL/FHL/GS/TA 5/5 DP/PT pulses palpable Results & Data Vital Signs (Past 12 Hours) Vital Signs Temp Pulse Pulse Resp BP BP Pulse Ox 04/06/24 13:44 64 04/06/24 13:43 62 18 160/77 H 95 04/06/24 13:43 62 18 96 04/06/24 12:38 36.6 C 81 17 190/87 H 95 O2 Del Method 04/06/24 13:44 04/06/24 13:43 Room Air 04/06/24 13:43 Room Air 04/06/24 12:38 Room Air Diagnostic Findings AP, lateral, sunrise x-ray views of the left knee obtained today 04/06/2024 independently reviewed and interpreted by myself today demonstrate no acute fracture or dislocation. Marginal osteophyte formation noted about the patellofemoral joint, medial joint line, and lateral joint line. Chondrocalcino sis noted about the medial and lateral menisci. Multiple loose bodies are appreciated in the suprapatellar pouch, possible loose body in the infrapatellar region near the patella tendon insertion. A large soft tissue effusion is appreciated. (1) Knee pain, left Chronicity: acute Qualified Code(s): M25.562 - Pain in left knee
--- NOTE | 2024-04-06 16:17 | History & Physical Report ---
Date of Service April 06, 2024 Assessment & Plan (1) Effusion of knee joint, left: (2) Knee pain, left: Plan: DDX: pseudogout vs septic joint Patient is 73 year old male with PMH HLD, chronic sinusitis, history of PE, factor V Leiden, chronically anticoagulated on Eliquis, chronic cough, history of latent TB treated in 2019, iron deficiency anemia, presented to ER with complaint of left knee pain x 4 days. In ER afebrile, Initially hypertensive which improves after pain medication. Likely secondary to pain. Other vitals stable No Leukocytosis, ESR: 89, CRP: 8, negative Lyme disease screen LLE venous Doppler: Negative for DVT Left knee x-ray: No fracture. Osteoarthritis. Suprapatellar joint effusion with calcifications, intra-articular bodies versus sequela of chronic synovitis. Ortho consult. Ortho saw pt in ER and performed knee aspiration. Initial review suggests pseudogout, remaining analysis is pending. Discussed case with ortho, Dr Elaine who suggests holding on empiric antibiotics at this time pending fluid analysis. Recommends NPO MN in case of procedure tomorrow. Suggested holding Eliquis. I discussed starting IV heparin given pt's Factor V Leiden and h/o PE and ortho in agreement. Will plan to D/C IV Heparin at 0700 on 04/07/24 for possible procedure. Will hold on NSAIDs given anticoagulation and hold on steroids at this time given still r/o infection. Will start colchicine. Pain control with scheduled Tylenol, oxycodone and Dilaudid prn pain. CBC, BMP in am (3) Hx of factor V Leiden mutation: (4) History of pulmonary embolism: Plan: Chronically anticoagulated on Eliquis Hold Eliquis and start IV heparin. Will hold IV heparin at 0700 on 04/07/24 for possible OR procedure (5) Chronic cough: (6) Chronic sinusitis: Plan: H/O Latent TB - treated rifampin in 2019 Reports nonproductive cough since 12/2023. Initially treated with antibiotic without relief. He states over the past 10 days his cough has significantly decreased and is almost resolved Is to see MD pulmonology next week. Today CXR: Persistent but improved right basilar pleural and parenchymal changes. Outpatient 03/31/2024: CT chest without contrast: Right pleural effusion has not increased, there has been interval change in configuration. There is now a nondependent component extending laterally. Associated bandlike consolidation along the lateral right lung and reticulations, most notably in the right middle lobe. Atelectasis or scarring in the right lower lobe similar to prior. Si milar mild scarring in left lower lobe. Stable 4 mm lingular nodule. Central airways are patent. Outpatient CT thorax with contrast on 02/15/2024: Few tiny calcified granulomas. 4 mm lingular nodule. Small right pleural effusion with overlying bandlike atelectasis and/or scarring. Mild left lower lobe bandlike atelectasis and/or scarring. DVT Prophylaxis IV Heparin Admit med tele Full Code as per discussion with pt Follows with Reinier NUNES for routine care Pt was seen and care coordinated with Dr Moseley. See addendum I spent a total of 70 minutes reviewing notes, outpatient records, labs, medication, coordinating, documenting and providing care for this patient excluding time spent in the performance of separately billed services and excluding time spent by another provider/QHP. History of Present Illness Chief Complaint: Knee pain Primary Care Provider: Reinier Watson, [employer] [facility] Patient is 73 year old male with PMH HLD, chronic sinusitis, history of PE, factor V Leiden, chronically anticoagulated on Eliquis, chronic cough, history of latent TB treated in 2019, iron deficiency anemia, presented to ER with complaint of left knee pain x 4 days. States 4 days ago riding in car when had onset of left knee pain and swelling. States pain and swelling have progressively worsened and area feels warm. Pain worsens with any attempted ROM of knee. Denies any noted erythema or drainage. He denies any known injury or trauma. Denies fever or chills, N/V. He has tried ice and Tylenol without relief. He has been taking Eliquis without any missed doses. He reports nonproductive cough since 12/2023. Initially treated with antibiotic without relief. States had PFTs, echo, CT chest outpatient. Followed with pulmonology at [facility]. Patient reports was told had pleural effusion. States had trial of diuretics for a week and is no longer taking diuretics. Is to see MD pulmonology next week. He states over the past 10 days his cough has significantly decreased and is almost resolved. Denies fever/chills, diaphoresis, N/V/D/C, BONILLA, dizziness, syncope, vision changes, neck pain, CP, SOB, orthopnea, palpitations, hemoptysis, sore throat, abdominal pain, paresthesias, other extremity edema, rashes, urinary symptoms. Allergies Allergy/AdvReac Type Severity Reaction Status Date / Time No Known Drug Allergies Allergy Unknown . Verified 04/06/24 16:22 Home Medications Medication Instructions Recorded Confirmed Type multivitamin 1 tab PO QAM 11/21/20 04/06/24 History loratadine 10 mg tablet (Claritin) 10 mg PO HS PRN Allergy Symptoms 11/06/21 04/06/24 History omega-3 fatty acids-fish oil 684 1 cap PO DAILY 01/09/23 04/06/24 History mg-1,200 mg capsule,delayed release apixaban 5 mg tablet (Eliquis) 5 mg PO BID 01/15/23 04/06/24 History budesonide 0.25 mg/2 mL suspension See Rx Instructions .Route .COMPLEX 01/15/23 04/06/24 History for nebulization cyanocobalamin (vitamin B-12) 1,000 mcg PO DAILY 01/15/23 04/06/24 History 1,000 mcg tablet (Vitamin B-12) sodium bicarbonate-sodium See Rx Instructions .Route .COMPLEX 01/15/23 04/06/24 History chloride-neti pot nasal rinse with packet (Sinus Wash rinse device w/ packet) acetaminophen 500 mg tablet 1,000 mg (2 x 500 mg) PO TID PRN 01/19/23 04/06/24 Rx pain #20 tabs ascorbic acid (vitamin C) 500 mg 250 mg PO DAILY 04/06/24 04/06/24 History tablet ferrous sulfate 325 mg (65 mg 325 mg PO DAILY 04/06/24 04/06/24 History iron) tablet omeprazole 20 mg capsule,delayed 20 mg PO DAILY 04/06/24 04/06/24 History release pravastatin 80 mg tablet 80 mg PO HS 04/06/24 04/06/24 History tizanidine 2 mg tablet 2 mg PO TID PRN muscle spasticity 04/06/24 04/06/24 History Past Med/Surg History Problem List (Updated 04/06/24 @ 17:17 by Erika Ayoub PA-C) Chronic cough History of pulmonary embolism Pseudogout of left knee (Acute) Effusion of knee joint, left (Acute) Knee pain, left (Acute) Knee pain, left Abdominal pain Asymptomatic hypertensive urgency Abdominal pain, acute, left lower quadrant (Acute) Sinusitis with nasal polyps Chronic sinusitis Acquired deviated nasal septum Chronic rhinitis Hereditary deficiency of other clotting factors Dysphagia Hearing loss hearing aids-bilat. Pulmonary embolism 2009-when they found out he had factor V; currently taking eliquis Hemochromatosis "was taking iron pills and had too much in my blood, quit taking 3-4 months ago" Latent [place] the [place] [facility] of the [facility]" Hyperlipidemia Medical History History of cough pt stated "i have had this cough for about a month. I notified my dr and he asked me to get a covid test done. tested around 10/2021 at the [facility] in [place]. test came back negative." History of dysphagia "sometimes I feel like I am choking without eating anything, having trouble breathing through my nose as well, has been going on for the last 3 years. it comes and goes." Hx of factor V Leiden mutation Surgical History Hx of colonoscopy History of knee surgery LEFT knee tendon reconstruction with muscle flap- 1971 Family History Sister Cancer Hypertension Heart disease Mother Stroke Hypertension Other No family history of allergies No family history of bleeding disorder Denies family history of Asthma Social History Smoking Status: Never smoker Second Hand Exposure: No; Do You Dip or Chew Tobacco: No; Hx Alcohol Use: No Hx Substance Use: No Preferred Language: Bermudian Communication Ability: Effective Solar [employer] Required: No Beliefs That Will Affect Care: None marital status: Current Living Situation: Spouse current occupational status: retired Feels Safe at Home: Yes Assistive Devices: Glasses Review of Systems Review of Systems: All systems reviewed & are unremarkable except as noted in HPI & below Physical Exam Physical Exam: General: no distress, WDWN Head: normocephalic, atraumatic Eyes: conjunctiva non-injected, anicteric ENT: normal inspection external ears, nose, mucous membranes moist Neck: supple, trachea midline, non-tender Lungs: clear, no respiratory distress, no wheezing/rhonchi/rales CV: RRR, no murmur, no pretibial edema Abd: normal BS, soft, non-tender Ext: no cyanosis, no calf tenderness; Left knee with MIRTHA wrap and dressing in place Neuro: A&O x 3, no focal deficits noted, normal affect Skin: warm, dry Results & Data Results & Data Vital Signs (Past 12 Hours) Vital Signs Temp Pulse Pulse Resp BP BP Pulse Ox 04/06/24 15:00 85 19 153/81 H 96 04/06/24 13:44 64 04/06/24 13:43 62 18 160/77 H 95 04/06/24 13:43 62 18 96 04/06/24 12:38 36.6 C 81 17 190/87 H 95 O2 Del Method 04/06/24 15:00 Room Air 04/06/24 13:44 04/06/24 13:43 Room Air 04/06/24 13:43 Room Air 04/06/24 12:38 Room Air Laboratory Results Short CBC 04/06/24 Range/Units 13:10 WBC 6.20 (4.8-10.8) K/ul Hgb 11.4 L (14.0-18.0) g/dl Hct 35.0 L (42.0-52.0) % Plt Count 261 (130-400) K/uL BMP 04/06/24 13:10 Sodium 138 Potassium 4.5 Chloride 103 Carbon Dioxide 31 BUN 14 Creatinine 0.89 Glucose 131 H Calcium 9.3 Liver Function 04/06/24 Range/Units 13:10 Total Bilirubin 0.6 (0.2-1.0) mg/dl AST 15 (13-39) U/L ALT 13 (7-52) U/L Alkaline Phosphatase 60 (34-104) U/L Albumin 3.6 (3.4-5.0) gm/dl Diagnostic Findings Knee X-Ray 04/06/24 12:59 XR knee LT 3V CLINICAL HISTORY: Atraumatic L knee pain COMPARISON: None FINDINGS: There are atherosclerotic calcifications. There is moderate joint space narrowing and osteophytosis. There is a prominent joint effusion. There are multiple calcifications above the patella within the region of the joint effusion. No acute fracture or dislocation. IMPRESSION: 1. No acute fracture seen. 2. Osteoarthritis. 2. Suprapatellar joint effusion with calcifications, intra-articular bodies versus sequela of chronic synovitis. ACT 112: Negative or not required by law. Electronically signed by: Bartolo Ferreira M.D. 04/06/2024 1:31 PM Venous Doppler Study 04/06/24 12:59 LEFT LOWER EXTREMITY VENOUS DOPPLER HISTORY: Acute pain and swelling of the left lower extremity Atraumatic L knee pain COMPARISON STUDY: Radiographs of the left knee of same day FINDINGS: Complex left knee joint effusion redemonstrated along with synovial thickening. There is normal compressibility, flow, and augmentation within the left lower extremity deep venous system. IMPRESSION: 1. No DVT within the left lower extremity. 2. Joint effusion of the knee. ACT 112: Negative or not required by law. Electronically signed by: Sanya Mcdonough M.D. 04/06/2024 1:47 PM Chest X-Ray 04/06/24 16:43 EXAM: Radiograph of the Chest 1 View INDICATION: History of pleural effusion. TECHNIQUE: Frontal view of the chest. COMPARISON: 03/31/2024 FINDINGS: Lungs and pleural spaces: Slight decrease layering right pleural effusion. There is some fluid loculated in the base of the right major fissure. There is persistent but improved atelectasis in the right lung base. No pneumothorax. Heart: Stable prominent cardiac shadow. Mediastinum: Normal contour. Bones/joints: No fracture, erosion or dislocation. Soft tissues: No abnormality noted. No radiopaque foreign body noted. Upper abdomen: No abnormality noted. IMPRESSION: Persistent but improved right basilar pleural and parenchymal changes. ACT 112: Negative or not required by law. 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 Patient reports pain at 8/10 at the time of presentation. Patient denies fever, reports chronic cough which has been improving lately, denies pain or burning with passing urine, denies trauma to LLE. Pt reports minimal improvement in left knee pain down to 6/10 after arthrocentesis (80 cc fluid taken out). Labs reviewed, WBC WNL, RFT wnl, LFT WNL, uric acid 2.5 (low), lactate 1.1, CRP 8.12 and ESR 89. Pro-Janes pending. Lyme screen negative, Synovial fluid positive for calcium pyrophosphate crystals indicating pseudogout. LLE imagings reviewed. Follow-up final synovial studies closely, follow-up admitting blood culture and synovial fluid culture. Assess the need for antibiotic. Orthopedic evaluated, agrees with colchicine, no antibiotic for now, okay with heparin drip to be held tomorrow morning until further evaluation for surgery need, n.p.o. midnight. Start colchicine 1.2 mg f/b 0.6 mg in 1 hour, then 0.6 mg every 24 hour from last dose of colchine today until knee pain resolves. side effect profile of colchicine including N, V, diarrhea d/w pt and his at bedside, they are agreeable to use colchicine. On exam: GENERAL: Alert and oriented x3. NAD, on RA. HEENT: No pallor, no icterus. Pupils equal, round and reactive to light. Oral mucosa moist. NECK: No JVD, no neck masses. HEART: S1 and S2 heard. Regular rate and rhythm. No murmur, no gallop. RESPIRATORY SYSTEM: Normal AP diameter. No accessory muscle use. No wheezing, no crackles. ABDOMEN: Soft, bowel sounds present, nontender, no distention. CENTRAL NERVOUS SYSTEM: No facial droop. Speech is clear. Obeys simple commands. Moves extremities. EXTREMITIES: No edema, no erythema seen. Lt knee w/ bandage dressing. Painful ROM left knee. No s/s cellulitis lle noted. I have seen and examined the patient and have discussed the case with the provider above. I agree with the assessment and plan as stated. Time spent: 30 min
--- NOTE | 2024-04-06 16:22 | Procedure Note ---
Procedure Note Date of Service April 06, 2024 Note Left knee aspiration: Informed verbal consent for left knee aspiration was obtained. I discussed the risks of the intended procedure which include but are not limited to infection, pain, nerve or blood vessel damage, blood loss, need for additional procedures, need for surgical procedures, incomplete resolution of pain or symptoms, and need for repeat aspiration. We discussed benefits of the procedure which include being able to have more information for definitive diagnosis and guidance of therapeutic intervention. We also discussed that should the fluid analysis show evidence of infection we would recommend proceeding with surgical intervention. I discussed alternatives including observation and possibly empiric antibiotic therapy. Following this discussion the patient gave informed verbal consent to proceed with a left knee aspiration. After informed verbal consent was obtained from the patient including a discussion of risk, benefits, and alternatives the left knee was aspirated. Intended aspiration site was marked about the superior lateral aspect of the left knee. Skin was cleansed with Betadine, under appropriate sterile technique intended aspiration site was anesthetized with 3 cc of 2% plain lidocaine. Left knee was then aspirated from superior lateral approach utilizing an 18-gauge needle. 80 cc cloudy straw-colored fluid was obtained, there is slight blood tinge to the fluid. Following aspiration the needle was withdrawn, pressure was held for several minutes utilizing 4 x 4 gauze after which a sterile Band-Aid was applied to the aspiration site. The left knee was then placed into a light compressive Fidencio wrap. Fluid was taken to the lab for cell count with differential, aerobic and anaerobic cultures with Gram stain, crystal analysis, and Lyme PCR. There were no immediate complications, and no significant bleeding from the aspiration site. Discussion was had with the patient and his significant other regarding potential for needed surgical intervention versus medical management pending lab results. Supervising Physician Co-Signing Physician Notes Agree with above note. Coding
--- NOTE | 2024-04-06 17:11 | XRay Report ---
EXAM: Radiograph of the Chest 1 View INDICATION: History of pleural effusion. TECHNIQUE: Frontal view of the chest. COMPARISON: 03/31/2024 FINDINGS: Lungs and pleural spaces: Slight decrease layering right pleural effusion. There is some fluid loculated in the base of the right major fissure. There is persistent but improved atelectasis in the right lung base. No pneumothorax. Heart: Stable prominent cardiac shadow. Mediastinum: Normal contour. Bones/joints: No fracture, erosion or dislocation. Soft tissues: No abnormality noted. No radiopaque foreign body noted. Upper abdomen: No abnormality noted. IMPRESSION: Persistent but improved right basilar pleural and parenchymal changes. ACT 112: Negative or not required by law. Electronically signed by Amanda Solomon 04-06-2024 5:11 PM
[2024-04-06 17:22] LABS: Appearance Synovial Fluid Cloudy; Color Synovial Fluid Yellow; Mononuclear WBC Synovial 3.7 %; Polynuclear WBC Synovial 96.3 %; RBC Synovial Fluid Auto 3000 /uL; Source Synovial Fluid Left Knee; WBC Synovial Fluid Auto 17022 /ul (0-200)
[2024-04-06] MEDS ORDERED: ONDANSETRON INJ 2 MG/ML 2 ML VIAL IV PRN (17:45)
[2024-04-06] MEDS ORDERED: HYDROmorphone INJ 0.5 MG/0.5 ML SYR IV PRN (17:45)
[2024-04-06] MEDS ORDERED: SODIUM CHLORIDE 0.65% NA SOLN 45 ML (OCEAN) PRN (17:45)
[2024-04-06] MEDS: COLCHICINE 0.6 MG TAB PO ONE ×2 (17:48→19:05)
[2024-04-06] MEDS: oxyCODONE HCL IR 5 MG TAB (IMMEDIATE RELEASE) PO PRN (19:04)
[2024-04-06] MEDS: ACETAMINOPHEN 500 MG TAB PO SCH (19:04)
[2024-04-06] MEDS: HEPARIN 25000 UNIT/500 ML D5W 25,000 UNITS/500 ML BAG IV SCH (19:13)
--- NOTE | 2024-04-06 19:20 | Emergency Department Note ---
ED Visit Note I was consulted by the Advanced Practice Provider, Arvin. I personally made/approved the management plan and take responsibility for the patient man agement. I performed a substantive portion of the visit. This includes the aspects of: -MDM: Workup for DVT negative. Elevated inflammatory markers. Ortho consult necessary. -I independently interpreted the following studies: X-ray imaging of the knee reveals degenerative changes and effusion. I refer you to the EMR for further details. .
[2024-04-06] MEDS: Heparin IV Adult Wt-Based Standard *NO* INITIAL Bolus Protocol IV SCH (19:21)
[2024-04-06] MEDS: PRAVASTATIN SOD 40 MG TAB PO SCH (20:52)
--- OUTSIDE RECORDS SUMMARY | 2024-04-06 21:55 | External Medical Summary | Summary of Care ---
Author Name Unknown Organization [facility] Address [address] [facility] [place] [address] Phone [phone] Care Team Providers Care Parts Runner Name Role Phone Reinier Watson Primary Care Provide r Reason for Visit * Reason Onset Date Comments Advice 03/21/2024 Encounter Details Date Type Department Care Team (Late st Contact Info) Description 03/21/[address] [facility] Kiley Timmons [address] [place] [phone] Cony Quiñones MD [address] [facility] [place] [id number] Advice Allergies No known active allergiesdocumented as of this encounter (statuses as of 03/21/2024) Medications FISH OIL 1000 MG PO CAPS one a day Active B-12 1000 MCG PO TBCR one a day Active Apixaban 5 MG Oral Tablet Take 1 Tablet by mouth in the morning and 1 Tablet before bedtime. Active Azelastine-Flut icasone 137-50 MCG/ACT Nasal Suspension Administer 1 [place] into nostril in the morning and 1 [place] before bedtime. Use in each nostril as directed . Active Vitamin D (Cholecalcifero l) 25 MCG (1000 UT) Oral Capsule Take by mouth . Acti ve M-Vit Oral Tablet Take 1 Tablet by mouth in the morning. Active Pravastatin Sodium 40 MG Oral Tablet (Pravachol) Take 1 Tablet by mouth every evening. Active Vitamin B Complex Oral Tablet Take 1 Tablet by mouth in the morning. Active Loratadine 10 MG Oral Tablet (Claritin) 1 Tablet. 2 Active Budesonide 0.5 MG/2ML Inhalation Suspension (Pulmicort) As directed in nasal saline twice a day 120 mL 12 3 Active Budesonide 0.5 MG/2ML Inhalation Suspension (Pulmicort) As directed in nasal saline rinse twice a day 120 mL 12 3 Active Omeprazole 20 MG Oral Capsule Delayed Release (PriLOSEC) Take 1 Capsule by mouth in the morning. 30 Capsule 3 3 Active guaiFENesin 200 MG Oral Tablet TAKE 2 TABLETS BY MOUTH EVERY 6 HOURS Active Budesonide 0.5 MG/2ML Inhalation Suspension (Pulmicort) As directed in nasal rinse twice a day 120 mL 12 4 Active documented as of this encounter (statuses as of 03/21/2024) Active Problems No known active problems documented as of this encounter (statuses as of 03/21/2024) Social History Tobacco Use Types Packs/Day Years Used Date Smoking Tobacco: Never Alcohol Use Standard Drinks/Week Comments Never 0 (1 standard drink = 0.6 oz pur e alcohol) Hunger Vital Sign Answer Date Recorded Within the past 12 months, y ou worried that your food would run out before you got the money to buy more. Never true 03/15/19 25 Within the past 12 months, t he food you bought just didn't last and you didn't have money to get more. Never true 03/15/2024 Childcare Answer Date Recorded Do you feel overwhelmed with taking care of a child, family member or friend? No 03/15/2024 Does your family need help f inding childcare? (Household - for ages 0-17 years) Not on file 03/15/2024 Clothing Answer Date Recorded Have you been unable to get clothing when it was really needed? No 03/15/2024 Is your family able to get c lothes or diapers when needed? (Household - for ages 0-17 years) Not on file 03/15/2024 Personal Safety Answer Date Recorded Do you feel unsafe or have concerns for your saf ety? No 03/15/2024 Do you have concerns for you r family's safety? (Household - for ages 0-17 years) Not on file 03/15/2024 Utilities Answer Date Recorded Do you have trouble paying y our heating, water, or electric bill? No 03/15/2024 Is your family able to pay t he heat, water, or electric bill? (Household - for ages 0-17 years) Not on file 03/15/2024 Does your family have access to good internet? (Household - for ages 0-17 years) Not on file 03/15/2024 Employment Status Answer Date Recorded Are you unemployed or without regular income? No 03/15/2024 Does the household have a re lar source of income? (Household - for ages 0-17 years) Not on file 03/15/2024 Social Connections Answer Date Recorded How often do you feel lonely or isolated from th ose around you? Never 03/15/2024 Financial Resource Strain Answer Date R ecorded Do you have any trouble payi ng for your medications, or do you think you might in the future? No 03/15/2024 Does your family have troubl e paying for medicine? (Household - for ages 0-17 years) Not on file 03/15/2024 Transportation Needs Answer Date Record ed Do you have trouble getting a ride to medical visits or work? (Adult - for ages 18 years and over) Not on file 03/15/2024 Does your family have a hard time getting a ride to doctors visits? (Household - for ages 0-17 years) Not on file 03/15/2024 Has lack of transportation k ept you from medical appointments, meetings, work, or from getting things needed for daily living? Check all that apply. No 03/15/2024 Do you (or your family) have trouble finding or paying for a ride (transportation)? (Household - for ages 0-17 years) Not on file 03/15/2024 Housing Stability Answer Date Recorded Do you currently live in a s helter or have no steady place to sleep at night? No 03/15/2024 Do you think you are at risk of becoming homeless? (Adult - for ages 18 years and over) Not on file 03/15/2024 Does your family worry about paying for your home or becoming homeless? (Household - for ages 0-17 years) Not on file 0 03/15/2024 Are you homeless or worried that you might be in the future? No 03/15/2024 Are you (or your family) gladis eless or worried that you might be in the future? (Household - for ages 0-17 years) Not on file Food Insecurity Answer Date Recorded Do you need food for this week? No 03/15/2024 Are you able to get enough f ood for your family? (Household - for ages 0-17 years) Not on file 03/15/2024 Does your family need food t his week? (Household - for ages 0-17 years) Not on file 03/15/2024 Do you always have enough fo od for your family? (Household - for ages 0-17 years) Not on file 03/15/2024 Sex and Gender Information Value Date Recorded Sex Assigned at Male 01/27/2023 5:33 PM EST Legal Sex Male 1:19 PM EST Gender Identity Male 01/27/2023 5:33 PM EST Sexual Orientation Straight 03/15/2024 2: 45 PM EST documented as of this encounter Miscellaneous Notes * Telephone Encounter - Kaley Manzano OSA - 03/21/2024 3:07 PM EST Patient has already been rescheduled for 03.30.24 03/21/2024 * Telephone Encounter - Cony Quiñones MD - 03/21/2024 12:56 PM EST Recommend wait till all results in MyG sent Forwarding to scheduling * Telephone Encounter - Tyrone Mckinnon LPN - 03/21/2024 10:36 AM EST Amanda calling to let know some info for tomorrow new patient apt. He was in [facility] ER on 03/14 due to SOB. Dx Plural effusion and no treatment. Has hx of latent TB over 4 year ago. Denies productive cough and [facility] collected 3 sputum samples on 03/11,03/15, and 03/16. 1st -Neg at this time and 2nd and 3rd not finalized at this time. Patient and just wanted to update new PCP and if she does not want him to come to the apt until all Sputum results are back just let them know. Advised patient to wear a mask at apt. Placed on dispense note. FYI * Telephone Encounter - Kaley Moser OSA - 03/21/2024 10:35 AM EST Reason for patient's call: , Karena, calling to provide update on medical hx prior to appt. Requesting to speak with a nurse. Caller was transferred to [place] at the nurse line. documented in this encounter Plan of Treatment Upcoming Encounters Date Type Department Care Team (Late st Contact Info) Description 03/30/2024 9:00 AM EST Office Visit [facility] [address] [phone] Cony Quiñones MD [address] [place] [id number] Health Maintenance Due Date Last Done Comments Depression Screening 1962 Hepatitis C Screening 1968 DTap/Tdap Vaccines (1 - Tdap) 1969 COVID-19 Vaccine (2023-2 5 season) 2023 12/28/2020, 05/30/2020, 05/09/2020 Influenza Vaccine (FLU shot) (#1) 2023 11/19/2018, 02/11/2018, 12/08/2015 Pneumococcal Vaccine: 50+ Years Completed 06/02/2018, 10/06/2014, 06/21/2013 Zoster Vaccines Completed 07/15/2018, 05/19/2018 HPV (Gardasil) Vaccine Aged Out No lo nger eligible based on patient's age to complete this topic Hepatitis B Vaccine Aged Out No longe r eligible based on patient's age to complete this topic MENINGOCOCCAL (MENACTRA/MENVEO) Aged Out No longer eligible b ased on patient's age to complete this topic documented as of this encounter Medical Devices Not on filedocumented as of this encounter Care Teams Parts Runner Relationship Specialty Start Date End Date Reinier Watson CRNP [address] [place] [address] PCP - General Nurse Practitioner 10/22/21 documented as of this encounter
--- OUTSIDE RECORDS SUMMARY | 2024-04-06 21:55 | External Medical Summary | Summary of Care ---
Author Name Unknown Organization [facility] Address [address] [facility] [place] [address] Phone [phone] Care Team Providers Care Senior Java Software Engineer Name Role Phone Reinier Watson Primary Care Provide r Reason for Visit * Reason Onset Date Comments Advice 03/21/2024 Encounter Details Date Type Department Care Team (Late st Contact Info) Description 03/21/2024 Telephone [facility] Kiley Timmons [address] [address] [phone] Cony Quiñones MD [address] [facility] [place] [id number] Advice Allergies No known active allergiesdocumented as of this encounter (statuses as of 03/21/2024) Medications FISH OIL 1000 MG PO CAPS one a day Active B-12 1000 MCG PO TBCR one a day Active Apixaban 5 MG Oral Tablet Take 1 Tablet by mouth in the morning and 1 Tablet before bedtime. Active Azelastine-Flut icasone 137-50 MCG/ACT Nasal Suspension Administer 1 [place] into nostril in the morning and 1 [place] before bedtime. Use in each nostril as [...] encounter Miscellaneous Notes * Telephone Encounter - Cony Quiñones MD - 03/21/2024 12:56 PM EST Recommend wait till all results in MyG sent Forwarding to scheduling * Telephone Encounter - Tyrone Mckinnon LPN - 03/21/2024 10:36 AM EST Amanda calling to let know some info for tomorrow new patient apt. He was in [facility] ER on 03/14 due to SOB. Dx [...] with a nurse. Caller was transferred to [place] at the nurse line. documented in this encounter Plan of Treatment Upcoming Encounters Date Type Department Care Team (Late st Contact Info) Description 03/30/2024 9:00 AM EST [facility] [address] [phone] Cony Quiñones MD [address] [facility] [place] [address] Health Maintenance Due Date Last Done Comments [...] filedocumented as of this encounter Care Teams Senior Java Software Engineer Relationship Specialty Start Date End Date Reinier Watson CRNP [address] [place] [address] PCP - General Nurse Practitioner 10/22/21 documented as of this encounter
[2024-04-07 01:40] LABS: Hematocrit (blood only) 32.6 % (42.0-52.0); Hemoglobin 10.6 g/dl (14.0-18.0); Mean Corpuscular Hemoglobin 30.5 pg (25.0-34.0); Mean Corpuscular Hgb Conc 32.5 g/dL (32.0-36.0); Mean Corpuscular Volume 93.7 fL (80.0-100.0); Mean Platelet Volume 8.8 fL (9.4-12.4); Platelet Count 237 K/uL (130-400); RDW Coefficient of Variation 14.3 % (11.5-14.5); RDW Standard Deviation 48.1 fL (36.4-46.3); Red Blood Count 3.48 M/uL (4.70-6.10); White Blood Count 6.45 K/ul (4.8-10.8)
[2024-04-07 01:47] LABS: BUN Creatinine Ratio 13.4 (10-20); Calcium 9.1 mg/dl (8.6-10.3); Creatinine Clr Calc Pharmacy 63.7 ml/min
[2024-04-07 01:59] LABS: ANTI-Xa, UFH(UnfractionatedHep 0.66 IU/ml (0.3-0.7)
[2024-04-07] MEDS: STOP HEPARIN ORDER ONE (07:33)
[2024-04-07] MEDS: CYANOCOBALAMIN (B-12) 500 MCG TABLET PO SCH (07:34)
[2024-04-07] MEDS: PANTOprazole 40 MG TAB PO SCH (07:34)
[2024-04-07] MEDS: MULTIVITAMIN TAB PO SCH (07:34)
--- NOTE | 2024-04-07 12:36 | Hospitalist Progress Note ---
Date of Service April 07, 2024 Assessment & Plan (1) Chronic cough: (2) History of pulmonary embolism: (3) Pseudogout of left knee: Plan Patient is 73 year old male with PMH HLD, chronic sinusitis, history of PE, factor V Leiden, chronically anticoagulated on Eliquis, chronic cough, history of latent TB treated in 2019, iron deficiency anemia who presented to the ER with complaint of left knee pain x 4 days. Knee Pain Pseudogout In ER afebrile, Initially hypertensive which improves after pain medication No Leukocytosis, ESR: 89, CRP: 8, negative Lyme disease screen LLE venous Doppler: Negative for DVT Left knee x-ray: Suprapatellar joint effusion with calcifications, intra- articular bodies versus sequela of chronic synovitis. Ortho consulted, appreciate recs -s/p knee joint aspiration on 04/06/24 -labs were consistent with pseudogout as the cause of his knee pain and swelling -IV Ancef empirically until cx final colchicine Pain control with scheduled Tylenol, oxycodone and Dilaudid prn pain. Continue to monitor Hx of factor V Leiden mutation History of pulmonary embolism Chronically anticoagulated on Eliquis Hold Eliquis and start IV heparin- hold at 7AM in case of need for surgery Chronic cough Chronic sinusitis H/O Latent TB - treated rifampin in 2019 Reports nonproductive cough since 12/2023. Initially treated with antibiotic without relief. He states over the past 10 days his cough has significantly decreased and is almost resolved Is to see [place] pulmonology next week. Today CXR: Persistent but improved right basilar pleural and parenchymal changes. Outpatient 03/31/2024: CT chest without contrast: Right pleural effusion has not increased, there has been interval change in configuration. There is now a nondependent component extending laterally. Associated bandlike consolidation along the lateral right lung and reticulations, most notably in the right middle lobe. Atelectasis or scarring in the right lower lobe similar to prior. Tosha lar mild scarring in left lower lobe. Stable 4 mm lingular nodule. Central airways are patent. Outpatient CT thorax with contrast on 02/15/2024: Few tiny calcified granulomas. 4 mm lingular nodule. Small right pleural effusion with overlying bandlike atelectasis and/or scarring. Mild left lower lobe bandlike atelectasis and/or scarring. On IV Ancef Continue to monitor Continue other meds as ordered Diet: HH/NPO after midnight DVT Prophylaxis: IV Heparin Dispo: PT/OT for further recs once medically stable Admission and Anticipated Discharge Date Admission Date: April 06, 2024 Subjective patient was seen laying in bed Noted that his knee had swollen once more after the joint aspiration Denying any fevers chills or night sweats Notes that the knee is warm but denies any erythema States he has a history of surgery in the knee while in the states that the knee was not replaced however Review of Systems Review of Systems: All systems reviewed & are unremarkable except as noted in Subjective Physical Exam Physical Exam: General: Alert, oriented. No acute distress Skin: swollen and warm left knee with noted healed surgical scar, no erythema Psych: Appropriate mood and affect HEENT: NC/AT Chest: Nontender to palpation. CV: RRR Resp: Breath sounds clear bilaterally, no increased effort of breathing Abdomen: BS+. Soft, nontender, nondistended. No guarding. No organomegaly appreciated. Extremities: swollen and warm left knee with noted healed surgical scar Results & Data Results & Data Vital Signs (Past 12 Hours) Vital Signs Temp Pulse Pulse Resp BP Pulse Ox O2 Del Method 04/07/24 11:18 36.6 C 71 18 147/77 H 92 Room Air 04/07/24 08:59 69 04/07/24 07:35 36.8 C 71 16 135/78 94 Room Air 04/07/24 07:24 Room Air 04/07/24 03:37 36.9 C 72 20 149/75 H 93 Room Air
--- NOTE | 2024-04-07 13:11 | Orthopedic Progress Note ---
Date of Service April 07, 2024 Assessment & Plan (1) Pseudogout of left knee: Plan: Discussed with the patient that his laboratory findings are consistent with pseudogout but there is no evidence at present of infection. I told him it is possible he has a toxic synovitis inflammatory process going on in his knee. Continue medical management for his pseudogout. Will put him on IV antibiotics for infection prophylaxis until his cultures are final negative. He can eat for today. N.p.o. after midnight tonight. Okay to restart his heparin drip. However, please discontinue this at 0700 tomorrow morning in case he needs to have his knee washed out if the cultures pop positive tomorrow. Admission and Anticipated Discharge Date Admission Date: April 06, 2024 Subjective patient seen and examined on a.m. rounds. He reports he still having significant pain in the left knee. Difficulty moving it and walking. Still no fevers or chills. He says he has had a productive cough for like the last 3 months that is slowly been getting better. He said he had his sputum cultured and nothing ever grew of it. Denies any antecedent knee pain prior to this weekend when this all started. Physical Exam Physical Exam: In general the patient does not appear septic, although he is in pain with any movement of his knee. Alert and oriented x 3. Left knee exam shows the patient have a large effusion. Active and passive range of motion limited from 10 to 30 degrees. No warmth about the knee. Distally neurovascularly intact. Results & Data Vital Signs (Past 12 Hours) Vital Signs Temp Pulse Pulse Resp BP Pulse Ox O2 Del Method 04/07/24 11:18 36.6 C 71 18 147/77 H 92 Room Air 04/07/24 08:59 69 04/07/24 07:35 36.8 C 71 16 135/78 94 Room Air 04/07/24 07:24 Room Air 04/07/24 03:37 36.9 C 72 20 149/75 H 93 Room Air Diagnostic Findings Cultures are negative at 24 hours.
[2024-04-07] MEDS: ceFAZolin 2000MG 2,000 MG/15 ML SYR IV SCH (14:12)
[2024-04-07] MEDS: COLCHICINE 0.6 MG TAB PO SCH (18:22)
[2024-04-07] MEDS ORDERED: Heparin IV Adult Wt-Based Standard *NO* INITIAL Bolus Protocol IV STA (19:31)
[2024-04-07] MEDS ORDERED: Heparin IV Adult Wt-Based Standard *NO* INITIAL Bolus Protocol IV SCH (19:32)
[2024-04-07] MEDS ORDERED: HEPARIN 25000 UNIT/500 ML D5W 25,000 UNITS/500 ML BAG IV SCH (19:45)
[2024-04-07] MEDS: HEPARIN 25000 UNIT/500 ML D5W 25,000 UNITS/500 ML BAG IV SCH (21:06)
[2024-04-08 03:38] LABS: ANTI-Xa, UFH(UnfractionatedHep 0.29 IU/ml (0.3-0.7)
[2024-04-08 09:26] LABS: Basophils # (auto) 0.02 K/uL (0.00-0.20); Basophils % (auto) 0.4 %; Hematocrit (blood only) 33.5 % (42.0-52.0); Immature Granulocytes # (auto) 0.01 K/uL (0.01-0.20); Immature Granulocytes % (auto) 0.2 %; Lymphocytes % (auto) 13.6 %; Mean Corpuscular Hemoglobin 30.8 pg (25.0-34.0); Mean Corpuscular Hgb Conc 32.8 g/dL (32.0-36.0); Mean Corpuscular Volume 93.8 fL (80.0-100.0); Mean Platelet Volume 9.3 fL (9.4-12.4); Monocytes # (auto) 0.81 K/uL (0.11-0.59); Monocytes % (auto) 15.8 %; Platelet Count 249 K/uL (130-400); RDW Coefficient of Variation 13.8 % (11.5-14.5); RDW Standard Deviation 47.3 fL (36.4-46.3); Red Blood Count 3.57 M/uL (4.70-6.10); White Blood Count 5.14 K/ul (4.8-10.8)
--- NOTE | 2024-04-08 09:33 | Orthopedic Progress Note ---
Date of Service April 08, 2024 Assessment & Plan (1) Pseudogout of left knee: Plan: Cultures are still pending. Patient is n.p.o. Heparin drip was stopped at 7 AM today. Pain controlled p.o. medication. Infection prophylaxis with IV antibiotics Once cultures are finalized and if no bacteria is present we will consider another aspiration and corticosteroid injection. If cultures do grow bacteria he will need an arthroscopic irrigation debridement. Patient will need a 2-week follow-up in our office. A message has been sent to team's to schedule this. Admission and Anticipated Discharge Date Admission Date: April 06, 2024 Subjective This 73-year-old male seen today for follow-up of pseudogout of his left knee. He states that the swelling is much better today than it was yesterday. He still has difficulty lifting it off of the bed or flexing it. He states that he has not had anything by mouth since midnight. He states that they stopped his heparin drip also. Patient states that he is not sure what caused the swelling in his knee. Patient states he has not been able to participate with physical therapy due to the pain in his knee. We are still waiting for the results of his blood cultures to be finalized before determining his next course of action. Currently he denies chest pain, shortness of breath, fever, chills, sweats, nausea, vomiting, diarrhea, difficulty voiding or numbness or tingling in his left lower extremity. Review of Systems Review of Systems: All systems reviewed & are unremarkable except as noted in Subjective Physical Exam Physical Exam: Left knee: Patient has a 2+ effusion over the anterior aspect of the knee. There is significant edema and some slight warmth to palpation but no ecchymosis. Active range of motion is from 30 degrees of extension to 65 degrees of flexion. He is exquisitely tender to palpation over the superolateral pouch. He is able to actively dorsi and plantarflex foot but is unable to perform active straight leg raise test. Patient is able to detect light sensation to touch over the pads of all digits. Peripheral pulses are 2+. Results & Data Vital Signs (Past 12 Hours) Vital Signs Temp Pulse Pulse Pulse Resp BP BP 04/08/24 07:45 36.6 C 60 16 137/67 04/08/24 07:39 59 L 04/08/24 03:49 36.8 C 58 L 17 131/72 02/06/25 22:47 37.1 C 68 17 148/71 H 04/07/24 21:49 62 Pulse Ox O2 Del Method 04/08/24 07:45 93 Room Air 04/08/24 07:39 04/08/24 03:49 94 Room Air 04/07/24 22:47 94 Room Air 04/07/24 21:49 Diagnostic Findings Laboratory Results WBC 5.14 K/ul (4.8-10.8) 04/08/24 08:46 RBC 3.57 M/uL (4.70-6.10) L 04/08/24 08:46 Hgb 11.0 g/dl (14.0-18.0) L 04/08/24 08:46 Hct 33.5 % (42.0-52.0) L 04/08/24 08:46 MCV 93.8 fL (80.0-100.0) 04/08/24 08:46 MCH 30.8 pg (25.0-34.0) 04/08/24 08:46 MCHC 32.8 g/dL (32.0-36.0) 04/08/24 08:46 RDW Std Deviation 47.3 fL (36.4-46.3) H 04/08/24 08:46 RDW Coeff of Prasanth 13.8 % (11.5-14.5) 04/08/24 08:46 Plt Count 249 K/uL (130-400) 04/08/24 08:46 MPV 9.3 fL (9.4-12.4) L 04/08/24 08:46 Immature Gran % (Auto) 0.2 % 04/08/24 08:46 Neut % (Auto) 70.0 % 04/08/24 08:46 Lymph % (Auto) 13.6 % 04/08/24 08:46 [place] % (Auto) 15.8 % 04/08/24 08:46 Eos % (Auto) 0.0 % 04/08/24 08:46 Baso % (Auto) 0.4 % 04/08/24 08:46 Neut # (Auto) 3.60 K/uL (1.40-6.50) 04/08/24 08:46 Lymph # (Auto) 0.70 K/uL (1.20-3.40) L 04/08/24 08:46 [place] # (Auto) 0.81 K/uL (0.11-0.59) H 04/08/24 08:46 Eos # (Auto) 0.00 K/uL (0.00-0.50) 04/08/24 08:46 Baso # (Auto) 0.02 K/uL (0.00-0.20) 04/08/24 08:46 Immature Gran # (Auto) 0.01 K/uL (0.01-0.20) 04/08/24 08:46 ESR 89 mm/hr (0-20) H 04/06/24 13:10 PT 11.2 Seconds (9.0-12.0) 04/06/24 13:10 INR 1.0 (0.9-1.1) 04/06/24 13:10 APTT 29 Seconds (21-31) 04/06/24 13:10 PTT Ratio 1.1 04/06/24 13:10 Heparin Anti-Xa, Unfract 0.29 IU/ml (0.3-0.7) L 04/08/24 03:02 Sodium 137 mmol/L (136-145) 04/07/24 01:14 Potassium 4.0 mmol/L (3.5-5.1) 04/07/24 01:14 Chloride 101 mmol/L (98-107) 04/07/24 01:14 Carbon Dioxide 31 mmol/L (21-32) 04/07/24 01:14 Anion Gap 5 (3-11) 04/07/24 01:14 BUN 13 mg/dl (6-23) 04/07/24 01:14 Creatinine 0.97 mg/dl (0.6-1.4) 04/07/24 01:14 Est Cr Clr Drug Dosing 63.7 ml/min 04/07/24 01:14 eGFR 81.41 04/07/24 01:14 BUN/Creatinine Ratio 13.4 (10-20) 04/07/24 01:14 Glucose 101 mg/dl (70-99(Fasting)) H 04/07/24 01:14 Lactate 1.1 mmol/L (0.4-2.0) 04/06/24 16:05 Uric Acid 2.5 mg/dl (2.6-7.2) L 04/06/24 13:10 Calcium 9.1 mg/dl (8.6-10.3) 04/07/24 01:14 Total Bilirubin 0.6 mg/dl (0.2-1.0) 04/06/24 13:10 AST 15 U/L (13-39) 04/06/24 13:10 ALT 13 U/L (7-52) 04/06/24 13:10 Alkaline Phosphatase 60 U/L (34-104) 04/06/24 13:10 C-Reactive Protein 8.12 mg/dl (0-0.5) H 04/06/24 13:10 Total Protein 7.9 gm/dl (6.0-8.3) 04/06/24 13:10 Albumin 3.6 gm/dl (3.4-5.0) 04/06/24 13:10 Globulin 4.3 gm/dl (2.5-4.0) H 04/06/24 13:10 Albumin/Globulin Ratio 0.8 (0.9-2) L 04/06/24 13:10 Procalcitonin 0.02 ng/ml (0-0.5) 04/06/24 14:23 Fluid Comment 04/06/24 15:35 Synovial Source Left Knee 04/06/24 15:35 Synovial Color Yellow 04/06/24 15:35 Synovial Appearance Cloudy 04/06/24 15:35 Synovial WBC (Auto) 04171 /ul (0-200) H 04/06/24 15:35 Synovial RBC (Auto) 3000 /uL 04/06/24 15:35 Synovial Polynuclear % 96.3 % 04/06/24 15:35 Synovial Mononuclear % 3.7 % 04/06/24 15:35 Synovial Crystals 04/06/24 15:35 Lyme Disease Screen Negative (Negative) 04/06/24 13:10 Impressions Knee X-Ray 04/06/24 12:59 XR knee LT 3V CLINICAL HISTORY: Atraumatic L knee pain COMPARISON: None FINDINGS: There are atherosclerotic calcifications. There is moderate joint space narrowing and osteophytosis. There is a prominent joint effusion. There are multiple calcifications above the patella within the region of the joint effusion. No acute fracture or dislocation. IMPRESSION: 1. No acute fracture seen. 2. Osteoarthritis. 2. Suprapatellar joint effusion with calcifications, intra-articular bodies versus sequela of chronic synovitis. ACT 112: Negative or not required by law. Electronically signed by: Bartolo Ferreira M.D. 04/06/2024 1:31 PM Venous Doppler Study 04/06/24 12:59 LEFT LOWER EXTREMITY VENOUS DOPPLER HISTORY: Acute pain and swelling of the left lower extremity Atraumatic L knee pain COMPARISON STUDY: Radiographs of the left knee of same day FINDINGS: Complex left knee joint effusion redemonstrated along with synovial thickening. There is normal compressibility, flow, and augmentation within the left lower extremity deep venous system. IMPRESSION: 1. No DVT within the left lower extremity. 2. Joint effusion of the knee. ACT 112: Negative or not required by law. Electronically signed by: Sanya Mcdonough M.D. 04/06/2024 1:47 PM Chest X-Ray 04/06/24 16:43 EXAM: Radiograph of the Chest 1 View INDICATION: History of pleural effusion. TECHNIQUE: Frontal view of the chest. COMPARISON: 03/31/2024 FINDINGS: Lungs and pleural spaces: Slight decrease layering right pleural effusion. There is some fluid loculated in the base of the right major fissure. There is persistent but improved atelectasis in the right lung base. No pneumothorax. Heart: Stable prominent cardiac shadow. Mediastinum: Normal contour. Bones/joints: No fracture, erosion or dislocation. Soft tissues: No abnormality noted. No radiopaque foreign body noted. Upper abdomen: No abnormality noted. IMPRESSION: Persistent but improved right basilar pleural and parenchymal changes. ACT 112: Negative or not required by law. Electronically signed by Amanda Solomon 04-06-2024 5:11 PM
[2024-04-08 09:40] LABS: Albumin Globulin Ratio 0.8 (0.9-2); Albumin Level 3.2 gm/dl (3.4-5.0); Bilirubin,Total 0.5 mg/dl (0.2-1.0); Creatinine Clr Calc Pharmacy 58.3 ml/min; Magnesium 2.1 mg/dl (1.7-2.4); Phosphorus 3.5 mg/dl (2.5-4.9); Potassium 4.3 mmol/L (3.5-5.1); Total Protein 7.2 gm/dl (6.0-8.3)
--- NOTE | 2024-04-08 11:35 | Hospitalist Progress Note ---
Date of Service April 08, 2024 Assessment & Plan (1) Chronic cough: (2) History of pulmonary embolism: (3) Pseudogout of left knee: Plan Patient is 73 year old male with PMH HLD, chronic sinusitis, history of PE, factor V Leiden, chronically anticoagulated on Eliquis, chronic cough, history of latent TB treated in 2019, iron deficiency anemia who presented to the ER with complaint of left knee pain x 4 days. Knee Pain Pseudogout In ER afebrile, Initially hypertensive which improves after pain medication No Leukocytosis, ESR: 89, CRP: 8, negative Lyme disease screen LLE venous Doppler: Negative for DVT Left knee x-ray: Suprapatellar joint effusion with calcifications, intra- articular bodies versus sequela of chronic synovitis. Ortho consulted, appreciate recs -s/p knee joint aspiration on 04/06/24 -Cx NGTD -can restart Eliquis -labs were consistent with pseudogout as the cause of his knee pain and swelling -start prednisone for pseudogout rx -d/c empiric IV Ancef -PT/OT Pain control with scheduled Tylenol, oxycodone and Dilaudid prn pain. Continue to monitor Hx of factor V Leiden mutation History of pulmonary embolism Chronically anticoagulated on Eliquis Resumed on 04/08 Chronic cough Chronic sinusitis H/O Latent TB - treated rifampin in 2019 Reports nonproductive cough since 12/2023. Initially treated with antibiotic without relief. He states over the past 10 days his cough has significantly decreased and is almost resolved Is to see CT pulmonology next week. Today CXR: Persistent but improved right basilar pleural and parenchymal changes. Outpatient 03/31/2024: CT chest without contrast: Right pleural effusion has not increased, there has been interval change in configuration. There is now a nondependent component extending laterally. Associated bandlike consolidation along the lateral right lung and reticulations, most notably in the right middle lobe. Atelectasis or scarring in the right lower lobe similar to prior. Similar mild scarring in left lower lobe. Stable 4 mm lingular nodule. Central airways are patent. Outpatient CT thorax with contrast on 02/15/2024: Few tiny calcified granulomas. 4 mm lingular nodule. Small right pleural effusion with overlying bandlike atelectasis and/or scarring. Mild left lower lobe bandlike atelectasis and/or scarring. On IV Ancef Continue to monitor Continue other meds as ordered Diet: HH DVT Prophylaxis:[place] Dispo: PT/OT for further recs once medically stable Admission and Anticipated Discharge Date Admission Date: April 06, 2024 Subjective Pt was seen in the AM States that still having pain in the left knee Denies fevers, chills or night sweats Review of Systems Review of Systems: All systems reviewed & are unremarkable except as noted in Subjective Physical Exam Physical Exam: General: Alert, oriented. No acute distress Skin: swollen and warm left knee with noted healed surgical scar, no erythema Psych: Appropriate mood and affect HEENT: NC/AT Chest: Nontender to palpation. CV: RRR Resp: Breath sounds clear bilaterally, no increased effort of breathing Abdomen: BS+. Soft, nontender, nondistended. No guarding. No organomegaly appreciated. Extremities: swollen and warm left knee with noted healed surgical scar Results & Data Results & Data Vital Signs (Past 12 Hours) Vital Signs Temp Pulse Pulse Pulse Resp BP BP 04/08/24 07:45 36.6 C 60 16 137/67 04/08/24 07:39 59 L 04/08/24 03:49 36.8 C 58 L 17 131/72 Pulse Ox O2 Del Method 04/08/24 07:45 93 Room Air 04/08/24 07:39 04/08/24 03:49 94 Room Air
[2024-04-08] MEDS: APIXABAN 5 MG TABLET PO SCH (16:37)
[2024-04-08] MEDS: predniSONE 20 MG TAB PO SCH (16:37)
[2024-04-08] MEDS: POLYETHYLENE (MIRALAX) 17 GM PACK PO PRN (20:15)
--- NOTE | 2024-04-08 21:29 | Communication Note ---
Date of Service: April 08, 2024 Patient with 11 beat run of NSVT while asleep as per RN. AP NSVT (AM electrolytes within normal limits) Initiate low-dose beta-malik TTE
[2024-04-08] MEDS: METOPROLOL TARTRATE 25 MG TAB PO SCH (22:48)
[2024-04-09] MEDS: MAGNESIUM HYDROXIDE SUSP 30 ML UDC PO ONE (03:48)
[2024-04-09] MEDS: ASCORBIC ACID 500 MG TAB PO SCH (08:03)
[2024-04-09] MEDS: FERROUS SULFATE 325 MG TAB PO SCH (08:03)
[2024-04-09] MEDS: DOCUSATE SODIUM/SENNA 50/8.6MG TAB PO SCH (08:08)
[2024-04-09 08:26] LABS: Basophils # (auto) 0.01 K/uL (0.00-0.20); Basophils % (auto) 0.2 %; Hematocrit (blood only) 32.4 % (42.0-52.0); Hemoglobin 10.6 g/dl (14.0-18.0); Immature Granulocytes # (auto) 0.02 K/uL (0.01-0.20); Immature Granulocytes % (auto) 0.3 %; Lymphocytes % (auto) 8.1 %; Mean Corpuscular Hemoglobin 30.2 pg (25.0-34.0); Mean Corpuscular Hgb Conc 32.7 g/dL (32.0-36.0); Mean Corpuscular Volume 92.3 fL (80.0-100.0); Mean Platelet Volume 9.2 fL (9.4-12.4); Monocytes # (auto) 0.48 K/uL (0.11-0.59); Monocytes % (auto) 7.7 %; Neutrophils % (auto) 83.7 %; Platelet Count 269 K/uL (130-400); RDW Coefficient of Variation 13.7 % (11.5-14.5); RDW Standard Deviation 46.3 fL (36.4-46.3); Red Blood Count 3.51 M/uL (4.70-6.10); White Blood Count 6.21 K/ul (4.8-10.8)
[2024-04-09 08:36] LABS: Albumin Globulin Ratio 0.7 (0.9-2); Albumin Level 3.2 gm/dl (3.4-5.0); BUN Creatinine Ratio 24.7 (10-20); Bilirubin,Total 0.4 mg/dl (0.2-1.0); Calcium 9.2 mg/dl (8.6-10.3); Creatinine Clr Calc Pharmacy 63.7 ml/min; Globulin 4.4 gm/dl (2.5-4.0); Magnesium 2.3 mg/dl (1.7-2.4); Phosphorus 3.7 mg/dl (2.5-4.9); Potassium 4.1 mmol/L (3.5-5.1); Total Protein 7.6 gm/dl (6.0-8.3)
[2024-04-09 11:27] VITALS: PULSE 58; RESP 18; TEMP 98.1; O2SAT 97
--- NOTE | 2024-04-09 11:27 | Discharge Summary ---
Discharge Summary Date of Service April 09, 2024 Principal Dx & Hospital Course #1 = Principal Diagnosis (1) Chronic cough: (2) History of pulmonary embolism: (3) Pseudogout of left knee: Plan Patient is 73 year old male with PMH HLD, chronic sinusitis, history of PE, factor V Leiden, chronically anticoagulated on Eliquis, chronic cough, history of latent TB treated in 2019, iron deficiency anemia who presented to the ER wi th complaint of left knee pain x 4 days. Knee Pain Pseudogout In ER afebrile, hypertensive with pain, noted improvement after pain meds No Leukocytosis, ESR: 89, CRP: 8, negative Lyme disease screen LLE venous Doppler: Negative for DVT Left knee x-ray noting OA and "suprapatellar joint effusion with calcifications, intra-articular bodies versus sequela of chronic synovitis" Ortho consulted, appreciate recs -s/p knee joint aspiration on 04/06/24 -Cx NGTD -can restart Eliquis -noting labs were consistent with pseudogout as the cause of his knee pain and swelling -start prednisone for pseudogout rx -d/c empiric IV Ancef -PT/OT (recommending pt can go home, no services needed) Pain control with scheduled Tylenol, oxycodone and Dilaudid prn On the day of discharge patient was ambulating the halls without issue. Stated that he had significant improvement in the swelling, pain and movement of his left knee. He was discharged with a prednisone taper and advised to continue with his home PPI while on steroids. He declined any prescription medications for pain, noting that Tylenol helped his pain. He was encouraged to follow-up with his primary care provider and orthopedics after discharge. Episode of NSVT Patient with an episode of nonsustained ventricular tachycardia on telemetry overnight Was asymptomatic and sleeping at the time it occurred He was started on metoprolol 12.5mg by the weather clerk EKG in the a.m. noting sinus bradycardia Patient declined an echocardiogram noting that it had been completed as an outpatient earlier this week at the [place]. Stated that his PCP should have those records as he recently signed release Epic chart review showing those records have not yet been faxed over as of April 09, 2024. Troponin negative no further episodes before discharge, patient remained asymptomatic Metoprolol discontinued on discharge given noted bradycardia, patient and a greeable to that plan Consider heart monitor/Zio patch placement at follow-up PCP visit for continued monitoring Patient agreeable to that plan, left in stable condition Hx of factor V Leiden mutation History of pulmonary embolism Chronically anticoagulated on Eliquis Resumed on 04/08 Chronic cough Chronic sinusitis H/O Latent TB - treated with rifampin in 2019 Reports nonproductive cough since 12/2023. Initially treated with antibiotic without relief. He states over the past 10 days his cough has significantly decreased and is almost resolved Is to see [place] pulmonology next week. Outpatient CT chest 03/31/2024: Right pleural effusion has not increased, there has been interval change in configuration. There is now a nondependent component extending laterally. Associated bandlike consolidation along the lateral right lung and reticulations, most notably in the right middle lobe. Atelectasis or scarring in the right lower lobe similar to prior. Similar mild scarring in left lower lobe. Stable 4 mm lingular nodule. Central airways are patent. Outpatient CT thorax with contrast on 02/15/2024: Few tiny calcified granulomas. 4 mm lingular nodule. Small right pleural effusion with overlying bandlike atelectasis and/or scarring. Mild left lower lobe bandlike atelectasis and/or scarring. CXR on admission: Persistent but improved right basilar pleural and parenchymal changes. PCP and pulmonology follow-up after discharge Continue other home meds as prescribed Notes For Next Care Provider Consider Zio placement as above Needs echocardiogram review done earlier this week as outpt Medication Changes From Visit Prednisone taper Admission HPI Per Admitting Provider Patient is 73 year old male with PMH HLD, chronic sinusitis, history of PE, factor V Leiden, chronically anticoagulated on Eliquis, chronic cough, history of latent TB treated in 2019, iron deficiency anemia, presented to ER with complaint of left knee pain x 4 days. States 4 days ago riding in car when had onset of left knee pain and swelling. States pain and swelling have progressively worsened and area feels warm. Pain worsens with any attempted ROM of knee. Denies any noted erythema or drainage. He denies any known injury or trauma. Denies fever or chills, N/V. He has tried ice and Tylenol without re lief. He has been taking Eliquis without any missed doses. He reports nonproductive cough since 12/2023. Initially treated with antibiotic without relief. had PFTs, echo, CT chest outpatient. Followed with pulmonology at [facility]. Patient reports was told had pleural effusion. had trial of diuretics for a week and is no longer taking diuretics. Is to see [place] pulmonology next week. He states over the past 10 days his cough has significantly decreased and is almost resolved. Denies fever/chills, diaphoresis, N/V/D/C, BONILL[place], dizziness, syncope, vision changes, neck pain, CP, SOB, orthopnea, palpitations, hemoptysis, sore throat, abdominal pain, paresthesias, other extremity edema, rashes, urinary symptoms. Admission Exam Per Admitting Provider General: no distress, WDWN Head: normocephalic, atraumatic Eyes: conjunctiva non-injected, anicteric ENT: normal inspection external ears, nose, mucous membranes moist Neck: supple, trachea midline, non-tender Lungs: clear, no respiratory distress, no wheezing/rhonchi/rales CV: RRR, no murmur, no pretibial edema Abd: normal BS, soft, non-tender Ext: no cyanosis, no calf tenderness; Left knee with MIRTHA wrap and dressing in place Neuro: A&O x 3, no focal deficits noted, normal affect Skin: warm, dry Discharge Exam General: Alert, oriented. No acute distress Skin: swollen and warm left knee with noted healed surgical scar, no erythema Psych: Appropriate mood and affect HEENT: NC/AT Chest: Nontender to palpation. CV: RRR Resp: Breath sounds clear bilaterally, no increased effort of breathing Abdomen: BS+. Soft, nontender, nondistended. No guarding. No organomegaly appreciated. Extremities: swollen and warm left knee with noted healed surgical scar Updated Medication List Medication Instructions Recorded Confirmed Type multivitamin 1 tab PO QAM 11/21/20 04/06/24 History loratadine 10 mg tablet (Claritin) 10 mg PO HS PRN Allergy Symptoms 11/06/21 04/06/24 History omega-3 fatty acids-fish oil 684 1 cap PO DAILY 01/09/23 04/06/24 History mg-1,200 mg capsule,delayed release apixaban 5 mg tablet (Eliquis) 5 mg PO BID 01/15/23 04/06/24 History budesonide 0.25 mg/2 mL suspension See Rx Instructions .Route .COMPLEX 01/15/23 04/06/24 History for nebulization cyanocobalamin (vitamin B-12) 1,000 mcg PO DAILY 01/15/23 04/06/24 History 1,000 mcg tablet (Vitamin B-12) sodium bicarbonate-sodium See Rx Instructions .Route .COMPLEX 01/15/23 04/06/24 History chloride-neti pot nasal rinse with packet (Sinus Wash rinse device w/ packet) acetaminophen 500 mg tablet 1,000 mg (2 x 500 mg) PO TID PRN 01/19/23 04/06/24 Rx pain #20 tabs ascorbic acid (vitamin C) 500 mg 250 mg PO DAILY 04/06/24 04/06/24 History tablet ferrous sulfate 325 mg (65 mg 325 mg PO DAILY 04/06/24 04/06/24 History iron) tablet omeprazole 20 mg capsule,delayed 20 mg PO DAILY 04/06/24 04/06/24 History release pravastatin 80 mg tablet 80 mg PO HS 04/06/24 04/06/24 History tizanidine 2 mg tablet 2 mg PO TID PRN muscle spasticity 04/06/24 04/06/24 History prednisone 10 mg tablet 10 mg PO DIRECTED #38 tabs 04/09/24 Rx Hospital Stay Data Consultations 04/06/24 16:05 ED Decision to Admit Stat 04/06/24 17:45 Consult Orthopedic Surgery Routine Procedures Performed Operation Date: 04/07/24 15:20 <No data on this case meets the specified criteria> Diagnostic Imagining Performed 04/06/24 12:59 US venous doppler LE LT Stat Knee X-Ray 04/06/24 12:59 XR knee LT 3V CLINICAL HISTORY: Atraumatic L knee pain COMPARISON: None FINDINGS: There are atherosclerotic calcifications. There is moderate joint space narrowing and osteophytosis. There is a prominent joint effusion. There are multiple calcifications above the patella within the region of the joint effusion. No acute fracture or dislocation. IMPRESSION: 1. No acute fracture seen. 2. Osteoarthritis. 2. Suprapatellar joint effusion with calcifications, intra-articular bodies versus sequela of chronic synovitis. ACT 112: Negative or not required by law. Electronically signed by: Bartolo Ferreira M.D. 04/06/2024 1:31 PM Venous Doppler Study 04/06/24 12:59 LEFT LOWER EXTREMITY VENOUS DOPPLER HISTORY: Acute pain and swelling of the left lower extremity Atraumatic L knee pain COMPARISON STUDY: Radiographs of the left knee of same day FINDINGS: Complex left knee joint effusion redemonstrated along with synovial thickening. There is normal compressibility, flow, and augmentation within the left lower extremity deep venous system. IMPRESSION: 1. No DVT within the left lower extremity. 2. Joint effusion of the knee. ACT 112: Negative or not required by law. Electronically signed by: Sanya Mcdonough M.D. 04/06/2024 1:47 PM Chest X-Ray 04/06/24 16:43 EXAM: Radiograph of the Chest 1 View INDICATION: History of pleural effusion. TECHNIQUE: Frontal view of the chest. COMPARISON: 03/31/2024 FINDINGS: Lungs and pleural spaces: Slight decrease layering right pleural effusion. There is some fluid loculated in the base of the right major fissure. There is persistent but improved atelectasis in the right lung base. No pneumothorax. Heart: Stable prominent cardiac shadow. Mediastinum: Normal contour. Bones/joints: No fracture, erosion or dislocation. Soft tissues: No abnormality noted. No radiopaque foreign body noted. Upper abdomen: No abnormality noted. IMPRESSION: Persistent but improved right basilar pleural and parenchymal changes. ACT 112: Negative or not required by law. Electronically signed by Amanda Solomon 04-06-2024 5:11 PM Discharge Instructions Given to Patient (Per Discharging Provider) Peter Bulmaro were seen by the medical coding specialist who determined that the swelling of your knee was related to a diagnosis of pseudogout. He did not believe that you had an infection. You are being discharged with with a prednisone taper to help treat your pseudogout. Please keep close follow-up with your primary care provider and orthopedic surgery after discharge You are also noted to have a short beat of an abnormal heart rate that on further evaluation was not too concerning. However we do recommend that you follow-up with your primary care provider for continued monitoring of this. Please do not hesitate to come back to the emergency room if your symptoms worsen or return. It was a pleasure taking care of you while you were here. Total Time Total Time Spent Total Time Spent (In Minutes): 65
[2024-04-09 12:45] VITALS: BP 142/72
[2024-04-11 20:02] LABS: Lyme DNA PCR CSF or Synovial Not Detected (Not Detected); Lyme DNA Source SYNOVIAL FLUID
--- NOTE | 2024-04-12 06:10 | Electrocardiogram Report ---
Test Reason : Blood Pressure : */* mmHG Vent. Rate : 47 BPM Atrial Rate : 47 BPM P-R Int : 194 ms QRS Dur : 92 ms QT Int : 500 ms P-R-T Axes : * 22 51 degrees QTcB Int : 442 ms Sinus bradycardia Nonspecific ST and T wave abnormality Abnormal ECG When compared with ECG of 14-Mar-2024 14:24, Criteria for Septal infarct are no longer Present Confirmed by Andrea Thornton ([id number]) on 04/12/2024 6:09:44 AM Referred By: REFERRED SELF Confirmed By: Andrea Thornton
== END 2024-04-09 13:07 | disposition home or self-care (01) | DRG 554 ==
LOC: ED 12:35 → EDINP 16:20 → SUATTDRO 16:20 → 2N 17:45